=== PATIENT | female | born 1945 | race Caucasian/White ===

== ENCOUNTER 2016-05-21 22:24 | Emergency (ER) | payer MEDICARE, OTHER | END 2016-05-22 01:11 | disposition home or self-care (01) | DX: D68.59 Other primary thrombophilia (principal); M54.5 Low back pain; Z86.718 Personal history of other venous thrombosis and embolism; Z79.01 Long term (current) use of anticoagulants ==

== ENCOUNTER 2016-08-05 15:26 | Emergency (ER) | payer MEDICARE, OTHER ==
--- NOTE | 2016-08-05 15:37 | ED Physician Documentation ---
PD HPI HEAD INJURY - Stated complaint Stated Complaint: HOLE IN HEAD - History obtained from History obtained from: Patient, Friend - History of Present Illness Mechanism of head injury: Blow (a cement shingle fell from ladder above her, hitting top of head. Had small laceration that bled well. No LOC but felt dazed for few moments. Has headache top of head. She is on Coumadin for prior DVTs.) Where head injury occurred: Other (friend's house) Timing - onset: Today (just [employer]RE[employer]) Location of injury: Top Quality of pain: Pain, Aching Associated symptoms: Other (laceration with bleeding.). No: LOC, AMS, Nausea / vomiting, Neck pain Symptoms improve with: Ice Symptoms worsen with: Palpation Contributing factors: Anticoagulated. No: Intoxicated Similar symptoms before: Has not had sx before Recently seen: Not recently seen Review of Systems Constitutional: denies: Fever Nose: denies: Rhinorrhea / runny nose, Congestion Throat: denies: Sore throat Cardiac: denies: Chest pain / pressure Respiratory: denies: Cough Musculoskeletal: denies: Neck pain, Back pain Neurologic: reports: Headache, Head injury. denies: Focal weakness, Numbness, Confused, Altered mental status, LOC PD PAST MEDICAL HISTORY - Past Medical History Cardiovascular: Deep vein thrombosis Psych: Depression - Past Surgical History Past Surgical History: Yes /RN IV THERAPY: Tubal ligation - Present Medications Home Medications: Ambulatory Orders Medication Instructions Recorded Confirmed Hydroxyurea [Hydrea] 500 mg PO DAILY 08/24/12 08/05/16 Warfarin Sodium [Coumadin] 5 mg PO DAILY 08/24/12 08/05/16 Bupropion HCl [Wellbutrin] 150 mg PO DAILY 11/27/14 08/05/16 Bupropion HCl [Bupropion Xl] 300 mg PO DAILY 05/28/15 08/05/16 Sertraline HCl 200 mg PO DAILY 05/28/15 08/05/16 Hydroxyzine Pamoate 5 mg BID 08/05/16 08/05/16 Omeprazole 20 mg DAILY 08/05/16 08/05/16 traZODone [Desyrel] 0.5 tab QPM 08/05/16 08/05/16 - Allergies Allergies/Adverse Reactions: Allergies Allergy/AdvReac Type Severity Reaction Status Date / Time hydrocodone bitartrate * AdvReac Mild Itching Verified 05/22/16 00:42 [From Vicodin] oxycodone HCl * AdvReac Mild Itching Verified 05/22/16 00:42 [From Percocet] - Social History Does the pt smoke?: No Smoking Status: Never smoker Does the pt drink ETOH?: No Does the pt have substance abuse?: No - Immunizations Immunizations are current?: Yes PD ED PE NORMAL - Vitals Vital signs reviewed: Yes - General General: Alert and oriented X 3, No acute distress, Well developed/nourished - HEENT HEENT: Ears normal, Pharynx benign, Other (top of head with 1.5 cm laceration v- shaped, with minimal bleeding right now, no FB seen. 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, No motor deficit, No sensory deficit, Normal speech, Other Results - Vitals Vitals: Vital Signs - 24 hr 08/05/16 08/05/16 15:32 16:55 Temperature 37 C 36.4 C L Heart Rate 75 59 L Respiratory 18 18 Rate Blood Pressure 124/73 125/68 O2 Saturation 98 97 Oxygen O2 Source Room air - Labs Labs: Laboratory Tests 08/05/16 15:50 Whole Blood INR 1.6 H - Rads (name of study) head CT Radiology: Prelim report reviewed (no ICH), EMP read contemporaneously Procedures - Laceration (location) scalp Length in cm: 1.5 Wound type: Curved, Clean Anesthesia: Lidocaine 1% with epi Wound Preparation: Other (cleansed with tap water) Skin layer closure: Nylon, Interrupted, Size #-0 - enter number (4), Sutures - enter # (3) Other: Patient tolerated well, No complications, Neurovascular intact, Dressing applied, Tetanus UTD Complexity: Simple PD MEDICAL DECISION MAKING - ED course Complexity details: reviewed results, considered differential, d/w patient Departure - Departure Disposition: 01 Home, Self Care Clinical Impression: Anticoagulant long-term use Scalp contusion Qualifiers: Encounter type: initial encounter Qualified Code(s): S00.03XA - Contusion of scalp, initial encounter Scalp laceration Qualifiers: Encounter type: initial encounter Qualified Code(s): S01.01XA - Laceration without foreign body of scalp, initial encounter Condition: Stable Record reviewed to determine appropriate education?: Yes Instructions: ED Laceration Scalp Stitch Or Stap Follow-Up: Chapito Potter DO [Primary Care Provider] - Comments: Tylenol every 4 hours if needed for pains. It is okay to wash and shower. Clean off the wound twice a day with soap and water, or peroxide and water. Apply some antibiotic ointment to it to keep it moist. Also to watch for signs of infection such as purulence, redness or increasing pain. Return to your primary care or the ER at the specified time for suture removal. Suture removal 7-8 days. Your Coumadin level was slightly low today. Take an extra 1 tablet of your Coumadin today. Otherwise continue usual doses. Discharge Date/Time: 08/05/16 16:59
[2016-08-05] MEDS ORDERED: TETANUS/DIPHTHERIA/PERTUSSIS 0.5 ML SYRINGE IM ONE ×2 (16:05→16:07)
--- NOTE | 2016-08-05 16:44 | CT Preliminary Report ---
Exam: CT Head W/O IMPRESSION: 1. No calvarial fracture or intracranial bleed. 2. Mild cerebral atrophy. 3. 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 [facility] SITE ID: [id number]
--- NOTE | 2016-08-05 16:46 | CT Report ---
EXAM: CT HEAD EXAM DATE: 08/05/2016 04:32 PM. CLINICAL HISTORY: Struck atop head with heavy board; on coumadin. COMPARISON: Head CT 11/01/2012. TECHNIQUE: Multiaxial CT images were obtained from the foramen magnum to the vertex. IV contrast: Non e. Reformats: Coronal. In accordance with CT protocol optimization, one or more of the following dose reduction techniques w ere utilized for this exam: automated exposure control, adjustment of mA and/or KV based on patient s ize, or use of iterative reconstructive technique. FINDINGS: Parenchyma: Mild cerebral atrophy without intracranial bleed or mass effect. Stanley-white differentiati on is distinct. Extraaxial Spaces: Mild cerebral atrophy. Ventricles: Normal in size and position. Sinuses: Imaged paranasal sinuses, orbits, and mastoids show no significant abnormality. Bones: Occipital osteoma redemonstrated measuring 2.7 x 1.1 cm. Other: None. IMPRESSION: 1. No calvarial fracture or intracranial bleed. 2. Mild cerebral atrophy. 3. 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 [facility] Referring Provider Line: [phone] SITE ID: [id number]
[2016-08-05 16:56] VITALS: BP 125/68
== END 2016-08-05 16:59 | disposition home or self-care (01) ==
LOC: ED 15:26
DX: S01.01XA Laceration without foreign body of scalp, initial encounter (principal); W20.8XXA Other cause of strike by thrown, projected or falling object, initial encounter; Y92.009 Unspecified place in unspecified non-institutional (private) residence as the place of occurrence of the external cause; Z23 Encounter for immunization; Z86.718 Personal history of other venous thrombosis and embolism; Z79.01 Long term (current) use of anticoagulants
CPT/HCPCS: 12001; 70450; 85610; 90471; 99283

== ENCOUNTER 2016-10-09 10:37 | Outpatient (CLI) | payer MEDICARE, OTHER | END 2016-10-09 10:38 | disposition home or self-care (01) | LOC: LAB.N 10:37 | PROVIDERS: ATTEND Family Medicine | DX: I48.91 Unspecified atrial fibrillation (principal); Z79.01 Long term (current) use of anticoagulants | CPT/HCPCS: 85610 ==

== ENCOUNTER 2016-11-13 13:02 | Emergency (ER) | payer MEDICARE, OTHER ==
[2016-11-13 13:17] VITALS: BP 122/83
--- NOTE | 2016-11-13 14:01 | XRAY Preliminary Report ---
Exam: XR Hand 3 View LT IMPRESSION: 1. Nondisplaced fifth metacarpal head fracture. 2. Moderate osteoarthritis and other chronic findings. [facility] SITE ID: [id number]
--- NOTE | 2016-11-13 14:03 | XRAY Report ---
EXAM: RIGHT HAND RADIOGRAPHY EXAM DATE: 11/13/2016 01:43 PM. CLINICAL HISTORY: Fall, pain. COMPARISON: None. TECHNIQUE: 3 views. FINDINGS: Bones: Osteopenia. Impacted nondisplaced transverse fracture of fifth metacarpal head. Ununited ulnar styloid process with smooth margins. No other evidence of fracture or bone lesion. Old ORIF of dista l radius. Joints: Prominent degenerative changes distally and in the first CMC joint. Soft Tissues: Soft tissue swelling. IMPRESSION: 1. Nondisplaced fifth metacarpal head fracture. 2. Moderate osteoarthritis and other chronic findings. [facility] Referring Provider Line: [phone] SITE ID: [id number]
--- NOTE | 2016-11-13 14:05 | XRAY Preliminary Report ---
Exam: XR Chest 2 View PA/LAT IMPRESSION: Chronic findings. No definite acute disease. Left rib fractures appear to be old, but cor relation with symptom localization may be helpful. [facility] SITE ID: [id number]
--- NOTE | 2016-11-13 14:07 | XRAY Report ---
EXAM: CHEST RADIOGRAPHY EXAM DATE: 11/13/2016 01:43 PM. CLINICAL HISTORY: Fall, pain. COMPARISON: None. TECHNIQUE: 2 views. FINDINGS: Lungs/Pleura: Coarse interstitial markings. No definite localized infiltrate, consolidation, effusion , or pneumothorax. Mediastinum: Heart and mediastinal contours are unremarkable. Normal heart size. Upper lobe vessels n ot distended. Other: Osteopenia. Degenerative changes. Probable fractures of anterolateral left fifth, sixth, and s eventh ribs, age unknown, probably old. Prominent anterior compression fracture of about L1, also pro bably old. Slight deformity of lower sternum, most likely old trauma. IMPRESSION: Chronic findings. No definite acute disease. Left rib fractures appear to be old, but cor relation with symptom localization may be helpful. [facility] Referring Provider Line: [phone] SITE ID: [id number]
--- NOTE | 2016-11-13 14:57 | ED Physician Documentation ---
History of Present Illness - Stated complaint Stated Complaint: GLF/LT HAND INJ/ CHEST PX - Chief complaint Chief Complaint: General - History obtained from History obtained from: Patient - History of Present Illness Timing: Other (She had a trip and fall last night landing on her left hand and left chest wall against concrete. No other injuries. No head or neck injury. 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 - Present Medications Home Medications: Ambulatory Orders Medication Instructions Recorded Confirmed Hydroxyurea [Hydrea] 500 mg PO DAILY 08/24/12 11/13/16 Warfarin Sodium [Coumadin] 5 mg PO DAILY 08/24/12 11/13/16 Bupropion HCl [Bupropion Xl] 300 mg PO DAILY 05/28/15 11/13/16 Sertraline HCl 200 mg PO DAILY 05/28/15 11/13/16 Hydroxyzine Pamoate 5 mg BID 08/05/16 11/13/16 Omeprazole 20 mg DAILY 08/05/16 11/13/16 traMADol [Ultram] 50 mg PO Q4-6H PRN #15 tablet 11/13/16 - Allergies Allergies/Adverse Reactions: Allergies Allergy/AdvReac Type Severity Reaction Status Date / Time hydrocodone bitartrate * AdvReac Mild Itching Verified 11/13/16 14:30 [From Vicodin] oxycodone HCl * AdvReac Mild Itching Verified 11/13/16 14:30 [From Percocet] - Social History Does the pt smoke?: No Smoking Status: Never smoker Does the pt drink ETOH?: No Does the pt have substance abuse?: No - Immunizations Immunizations are current?: Yes Immunizations: TDAP >10years/unknown - POLST Patient has POLST: No PD ED PE NORMAL - Vitals Vital signs reviewed: Yes - General General: Alert and oriented X 3, No acute distress - Neck Neck: Supple, no meningeal sign, No bony TTP - Cardiac Cardiac: RRR, No murmur, Other (Mild tenderness left lateral chest wall without deformity. No abdominal or flank tenderness.) - Respiratory Respiratory: No respiratory distress, Clear bilaterally - Extremities Extremities: Other (Mild tenderness to the fifth Metacarpal head without deformity or loss of saccade, normal neurovascular status in the tips of the left fourth and fifth fingers.) - Neuro Neuro: Alert and oriented X 3, Normal speech - Psych Psych: Normal mood, Normal affect Results - Vitals Vitals: Vital Signs - 24 hr 11/13/16 13:15 Temperature 36.2 C L Heart Rate 64 Respiratory 16 Rate Blood Pressure 122/83 H O2 Saturation 97 Oxygen O2 Source Room air - Rads (name of study) 2 view chest x-ray and left hand x-ray Radiology: EMP read contemporaneously (What appear to be old left rib fractures , and there is a nondisplaced fifth metacarpal head fracture) Procedures - Splint (location) L hand Splint applied by: Tech Type of splint: Fiberglass, Short arm, Ulnar gutter Other: Patient tolerated well, No complications, Neurovascular intact PD MEDICAL DECISION MAKING - ED course ED course: She declines prescription pain medication She is on warfarin, however there was no head injury or core injury other than her left chest wall. The patient and family were counseled as to the diagnosis and need for follow- up. I counseled the patient with regard to signs and symptoms that would necessitate an urgent reevaluation in the emergency department. They understand they are welcome to return at any time if worse or if not improving as expected. This document was made in part using voice recognition software. While efforts are made to proofread this documents, sound alike and grammatical errors may occur. Departure - Departure Disposition: 01 Home, Self Care Clinical Impression: Fracture of fifth metacarpal bone of left hand Qualifiers: Encounter type: initial encounter Fracture type: closed Metacarpal location: neck Fracture alignment: displaced Qualified Code(s): S62.337A - Displaced fracture of neck of fifth metacarpal bone, left hand, initial encounter for closed fracture Rib fractures Qualifiers: Encounter type: initial encounter Rib fracture type: multiple ribs Fracture type: closed Laterality: left Qualified Code(s): S22.42XA - Multiple fractures of ribs, left side, initial encounter for closed fracture Condition: Good Record reviewed to determine appropriate education?: Yes Instructions: ED Contusion Vs Minor Fx Rib, ED Cast Care Fiberglass Follow-Up: [facility] [Provider Group] - Within 1 week Prescriptions: traMADol [Ultram] 50 mg PO Q4-6H PRN #15 tablet PRN Reason: Pain Comments: Call your doctor to arrange a follow-up appointment, make the next available appointment. In the interim, return anytime if worse or if new symptoms develop. Your blood pressure was elevated today on check into the emergency department. This does not mean that you have hypertension, it is a common phenomenon to come to the emergency department and have elevated blood pressure. I recommend that she see your primary care physician within the week to have it rechecked when you are feeling better. Discharge Date/Time: 11/13/16 15:17
== END 2016-11-13 15:17 | disposition home or self-care (01) ==
LOC: ED 13:02
DX: S62.337A Displaced fracture of neck of fifth metacarpal bone, left hand, initial encounter for closed fracture (principal); S22.42XA Multiple fractures of ribs, left side, initial encounter for closed fracture; W01.0XXA Fall on same level from slipping, tripping and stumbling without subsequent striking against object, initial encounter; R03.0 Elevated blood-pressure reading, without diagnosis of hypertension; F02.80 Dementia in other diseases classified elsewhere, unspecified severity, without behavioral disturbance, psychotic disturbance, mood disturbance, and anxiety; G30.9 Alzheimer's disease, unspecified; Z86.718 Personal history of other venous thrombosis and embolism; Z79.01 Long term (current) use of anticoagulants
CPT/HCPCS: 29125; 71020; 99283; 99284

== ENCOUNTER 2017-05-08 17:21 | Emergency (ER) | payer MEDICARE, OTHER ==
--- NOTE | 2017-05-08 17:45 | ED Physician Documentation ---
History of Present Illness - Stated complaint Stated Complaint: POSS STROKE SYMPTOMS - Chief complaint Chief Complaint: Neuro - History obtained from History obtained from: Patient, Friend - History of Present Illness Timing: Today, How many hours ago (1.5) Pain level max: 0 Pain level now: 0 Improved by: nothing Worsened by: nothing - Additonal information Additional information: Patient is a 72-year-old female who has a history of mild dementia, was outside today putting logs onto a fire, went back in the house and felt shaky and nauseated. She had emesis 1 and then felt better. She also had some confusion at that time, this seems to be improving now. No focal neurological deficits. No difficulty with speech. No aphasia. No dysarthria. No headache. No fevers. No trauma. Review of Systems Unable to obtain: Dementia Constitutional: denies: Fever, Chills Ears: denies: Ear pain Nose: denies: Rhinorrhea / runny nose, Congestion Throat: denies: Sore throat Cardiac: denies: Chest pain / pressure Respiratory: denies: Cough GI: denies: Nausea, Vomiting, Diarrhea Skin: denies: Rash Musculoskeletal: denies: Neck pain, Back pain, Extremity pain Neurologic: denies: Generalized weakness, Focal weakness, Numbness, Syncope, Seizure, Headache PD PAST MEDICAL HISTORY - Past Medical History Cardiovascular: Deep vein thrombosis Neuro: Alzhiemer's Psych: Depression - Past Surgical History Past Surgical History: Yes /YACHT HAND: Tubal ligation - Present Medications Home Medications: Ambulatory Orders Medication Instructions Recorded Confirmed Hydroxyurea [Hydrea] 500 mg PO DAILY 08/24/12 01/20/17 Bupropion HCl [Bupropion Xl] 300 mg PO DAILY MDD +150mg, total 05/28/15 01/20/17 dose 450 mg Sertraline HCl 200 mg PO DAILY 05/28/15 01/20/17 hydrOXYzine pamoate [Hydroxyzine 5 mg PO BID PRN 08/05/16 01/20/17 Pamoate] traMADol [Ultram] 50 mg PO Q4-6H PRN #15 tablet 11/13/16 01/20/17 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 01/20/17 flare Bupropion HCl [Bupropion Xl] 150 mg PO DAILY MDD +300 mg total 01/20/17 01/20/17 dose 450 mg Rivaroxaban [Xarelto] 1 each PO DAILY 01/20/17 01/20/17 Trazodone HCl 50 mg PO QPM PRN 01/20/17 01/20/17 - Allergies Allergies/Adverse Reactions: Allergies Allergy/AdvReac Type Severity Reaction Status Date / Time hydrocodone bitartrate * AdvReac Mild Itching Verified 01/20/17 14:49 [From Vicodin] oxycodone HCl * AdvReac Mild Itching Verified 01/20/17 14:49 [From Percocet] - Social History Does the pt smoke?: No Smoking Status: Never smoker Does the pt drink ETOH?: No Does the pt have substance abuse?: No - Immunizations Immunizations are current?: Yes Immunizations: TDAP >10years/unknown - POLST Patient has POLST: No PD ED PE NORMAL - Vitals Vital signs reviewed: Yes - General General: Alert and oriented X 3, No acute distress, Well developed/nourished - HEENT HEENT: Atraumatic, PERRL, EOMI, Ears normal, Moist mucous membranes - Neck Neck: Supple, no meningeal sign, No JVD, No bruit - Cardiac Cardiac: RRR, No murmur, Strong equal pulses - Respiratory Respiratory: No respiratory distress, Clear bilaterally - Abdomen Abdomen: Soft, Non tender, Non distended - Back Back: No spinal TTP - Derm Derm: Warm and dry, No rash - Extremities Extremities: No deformity - Neuro Neuro: Alert and oriented X 3, transportation program director 2-12 intact, No motor deficit, No sensory deficit, Normal speech, Other (normal cerebellar tests) - Psych Psych: Normal mood, Normal affect Results - Vitals Vitals: Vital Signs - 24 hr 05/08/17 05/08/17 05/08/17 17:26 19:20 20:55 Temperature 36.4 C L Heart Rate 66 59 L 69 Respiratory 16 14 12 Rate Blood Pressure 124/77 126/87 H 123/76 O2 Saturation 98 100 99 Oxygen O2 Source Room air - EKG (time done) 1909 Rate: Rate (enter#) (58) Rhythm: NSR [place]: Normal Intervals: Normal MI QRS: Normal Ischemia: Normal ST segments Computer interpretation: Agree with computer - Labs Labs: Laboratory Tests 05/08/17 05/08/1718 17:43 18:25 18:25 WBC 4.7 L RBC 3.51 L Hgb 12.3 Hct 36.6 L MCV 104.2 H MCH 35.2 H MCHC 33.7 RDW 13.8 Plt Count 285 MPV 6.5 L Neut # 3.5 Lymph # 0.8 L [place] # 0.3 Eos # 0.1 Baso # 0.0 Absolute Nucleated RBC 0.00 Nucleated RBC % 0.0 Sodium 129 L Potassium 3.8 Chloride 97 L Carbon Dioxide 24 Anion Gap 8.0 BUN 17 Creatinine 0.9 Estimated GFR (MDRD) 61 L Glucose 93 POC Whole Bld Glucose 107 H Calcium 8.5 Total Bilirubin 0.6 AST 19 ALT 15 Alkaline Phosphatase 52 Troponin I Total Protein 6.4 L Albumin 3.8 Globulin 2.6 Albumin/Globulin Ratio 1.5 Lipase 16 L Urine Color Urine Clarity Urine pH Ur Specific [place] Urine Protein Urine Glucose (UA) Urine Ketones Urine Occult Blood Urine Nitrite Urine Bilirubin Urine Urobilinogen Ur Leukocyte Esterase Ur Microscopic Review Urine Culture Comments Urine Opiates Screen Ur Oxycodone Screen Urine Methadone Screen Ur Propoxyphene Screen Ur Barbiturates Screen Ur Tricyclics Screen Ur Phencyclidine Scrn Ur Amphetamine Screen U Methamphetamines Scrn U Benzodiazepines Scrn Urine Cocaine Screen U Cannabinoids Screen Ethyl Alcohol < 5.0 05/08/17 05/08/17 18:25 20:05 WBC RBC Hgb Hct MCV MCH MCHC RDW Plt Count MPV Neut # Lymph # [place] # Eos # Baso # Absolute Nucleated RBC Nucleated RBC % Sodium Potassium Chloride Carbon Dioxide Anion Gap BUN Creatinine Estimated GFR (MDRD) Glucose POC Whole Bld Glucose Calcium Total Bilirubin AST ALT Alkaline Phosphatase Troponin I < 0.04 Total Protein Albumin Globulin Albumin/Globulin Ratio Lipase Urine Color YELLOW Urine Clarity CLEAR Urine pH 7.0 Ur Specific [place] <=1.005 Urine Protein NEGATIVE Urine Glucose (UA) NEGATIVE Urine Ketones NEGATIVE Urine Occult Blood NEGATIVE Urine Nitrite NEGATIVE Urine Bilirubin NEGATIVE Urine Urobilinogen 0.2 (NORMAL) Ur Leukocyte Esterase NEGATIVE Ur Microscopic Review NOT INDICATED Urine Culture Comments NOT INDICATED Urine Opiates Screen NEGATIVE Ur Oxycodone Screen NEGATIVE Urine Methadone Screen NEGATIVE Ur Propoxyphene Screen NEGATIVE Ur Barbiturates Screen NEGATIVE Ur Tricyclics Screen NEGATIVE Ur Phencyclidine Scrn NEGATIVE Ur Amphetamine Screen NEGATIVE U Methamphetamines Scrn NEGATIVE U Benzodiazepines Scrn NEGATIVE Urine Cocaine Screen NEGATIVE U Cannabinoids Screen NEGATIVE Ethyl Alcohol - Rads (name of study) Ct Angio head Radiology: Prelim report reviewed, EMP read contemporaneously, See rad report ( 1. There is no acute intracranial abnormality. 2. 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 3. There is a mild degree of chronic small vessel ischemia. 4. Normal postcontrast CT scan of the head. 5. There is an 8 mm isodense mass just beneath the skin surface of the left cheek and a similar appearing but larger lesion just beneath the skin surface of the inferior posterior neck. These likely represent sebaceous cysts but recommend clinical correlation. 6. There is fenestration within the mid to distal right V2 segment of the right vertebral artery. This is a common anatomical variant. 7. There is no hemodynamically significant stenosis within the neck. 8. There is no hemodynamically significant stenosis within the head. There is no evidence of cerebral aneurysm. ) CT angio neck Radiology: Prelim report reviewed, EMP read contemporaneously, See rad report ( 1. There is no acute intracranial abnormality. 2. 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 3. There is a mild degree of chronic small vessel ischemia. 4. Normal postcontrast CT scan of the head. 5. There is an 8 mm isodense mass just beneath the skin surface of the left cheek and a similar appearing but larger lesion just beneath the skin surface of the inferior posterior neck. These likely represent sebaceous cysts but recommend clinical correlation. 6. There is fenestration within the mid to distal right V2 segment of the right vertebral artery. This is a common anatomical variant. 7. There is no hemodynamically significant stenosis within the neck. 8. There is no hemodynamically significant stenosis within the head. There is no evidence of cerebral aneurysm. ) PD MEDICAL DECISION MAKING - ED course Complexity details: reviewed results, re-evaluated patient, considered differential, d/w patient, d/w family ED course: Patient is a 72-year-old female presents to the emergency department feeling tremulous today after stacking wood onto a fire. Does not have any focal neurological deficits. No evidence of stroke or TIA. She is hyponatremic and slightly dehydrated, feels better after IV fluids. Symptoms resolved in the emergency department and she is at her normal baseline. No acute findings on CT angio of the head or neck. She does have some chronic findings are can be followed up with her doctor. Also has small vessel chronic ischemic disease. Patient and family counseled regarding signs and symptoms for which I believe and urgent re-evaluation would be necessary. Patient with good understanding of and agreement to plan and is comfortable going home at this time This document was made in part using voice recognition software. While efforts are made to proofread this document, sound alike and grammatical errors may occur. Departure - Departure Disposition: 01 Home, Self Care Clinical Impression: Hyponatremia Altered mental status Qualifiers: Altered mental status type: transient alteration of awareness Qualified Code(s) : R40.4 - Transient alteration of awareness Condition: Good Instructions: ED Altered Loc Follow-Up: Chapito Potter DO [Primary Care Provider] - Within 3 Days Comments: The cause of your symptoms is unclear today. You should follow up with Dr Potter early this week for a brain MRI. Return if you worsen. You should start on a baby aspirin daily. Discharge Date/Time: 05/08/17 21:32 NIHSS - Time Time: 17:40 - Level of Consciousness Level of consciousness: (0) Alert, Keenly responsive LOC Questions: (0) Answers both Q's correct LOC Commands: (0) Performs both correctly - Gaze Best Gaze: (0) Normal - Visual Visual: (0) No loss - Facial Palsy Facial Palsy: (0) Normal, symmetrical movement - Motor Arms (both separate) Motor Arm (right): (0) No drift Motor Arm (left): (0) No drift - Motor Legs (both separate) Motor Leg (right): (0) No drift Motor Leg (left): (0) No drift - Limb Ataxia Limb Ataxia: (0) Absent - Sensory Sensory: (0) Normal - Best Language Best Language: (0) No aphasia - Dysarthria Dysarthria: (0) Normal - Extinction and Inattention (formally neg Extinction and inattention: (0) No abnormality - Total Score/Results Total Score/Result: 0
[2017-05-08] MEDS ORDERED: IOPAMIDOL-300 100 ML VIAL ONE (18:00)
[2017-05-08 18:32] LABS: BASOPHILS % (AUTO) 0.2 %; EOSINOPHILS # (AUTO) 0.1 10^3/uL (0.0-0.7); EOSINOPHILS % (AUTO) 1.3 %; HGB - HEMOGLOBIN 12.3 g/dL (12.0-16.0); LYMPHOCYTES # (AUTO) 0.8 10^3/uL (1.5-3.5); LYMPHOCYTES % (AUTO) 16.2 %; MEAN CORPUSCULAR HEMOGLOBIN 35.2 pg (27.0-31.0); MEAN CORPUSCULAR HGB CONC 33.7 g/dL (32.0-36.0); MEAN CORPUSCULAR VOLUME 104.2 fL (81.0-99.0); MEAN PLATELET VOLUME 6.5 fL (7.9-10.8); MONOCYTES # (AUTO) 0.3 10^3/uL (0.0-1.0); MONOCYTES % (AUTO) 6.9 %; NEUTROPHILS # (AUTO) 3.5 10^3/uL (1.5-6.6); NEUTROPHILS % (AUTO) 75.4 %; PLT - PLATELET COUNT 285 10^3/uL (130-450); RED BLOOD COUNT 3.51 10^6/uL (4.20-5.40); RED CELL DISTRIBUTION WIDTH 13.8 % (12.0-15.0); WHITE BLOOD COUNT 4.7 x10^3/uL (4.8-10.8)
[2017-05-08 18:44] LABS: ALBUMIN 3.8 g/dL (3.2-5.5); ALBUMIN/GLOBULIN RATIO 1.5 (1.0-2.2); ALKALINE PHOSPHATASE 52 IU/L (42-121); ALT ALANINE AMINOTRANSFERASE 15 IU/L (10-60); AST ASPARTATE AMINOTRANSFERASE 19 IU/L (10-42); BILIRUBIN,TOTAL 0.6 mg/dL (0.2-1.0); BUN - BLOOD UREA NITROGEN 17 mg/dL (6-20); CALCIUM 8.5 mg/dL (8.5-10.3); CARBON DIOXIDE - CO2 24 mmol/L (21-32); CHLORIDE 97 mmol/L (101-111); CREATININE 0.9 mg/dL (0.4-1.0); GFR - MDRD 61 (>89); GLUCOSE 93 mg/dL (70-100); LIPASE 16 U/L (22-51); SODIUM 129 mmol/L (135-145); TOTAL PROTEIN 6.4 g/dL (6.7-8.2)
[2017-05-08] MEDS ORDERED: SODIUM CHLORIDE 0.9% 1,000 ML IV ONE (19:14)
[2017-05-08] MEDS ORDERED: SODIUM CHLORIDE 0.9% 500 ML IV ONE (19:14)
--- NOTE | 2017-05-08 19:20 | CT Preliminary Report ---
Exam: CT HEAD ANGIO Impression: 1. There is no acute intracranial abnormality. 2. 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 3. There is a mild degree of chronic small vessel ischemia. 4. Normal postcontrast CT scan of the head. 5. There is an 8 mm isodense mass just beneath the skin surface of the left cheek and a similar appea ring but larger lesion just beneath the skin surface of the inferior posterior neck. These likely rep resent sebaceous cysts but recommend clinical correlation. 6. There is fenestration within the mid to distal right V2 segment of the right vertebral artery. Thi s is a common anatomical variant. 7. There is no hemodynamically significant stenosis within the neck. 8. There is no hemodynamically significant stenosis within the head. There is no evidence of cerebral aneurysm. SITE ID: [id number]
[2017-05-08 20:11] LABS: BILIRUBIN,URINE NEGATIVE (NEGATIVE); GLUCOSE, URINE (UA) NEGATIVE (NEGATIVE); KETONES,URINE (UA) NEGATIVE (NEGATIVE); LEUKOCYTE ESTERASE, URINE NEGATIVE (NEGATIVE); MUDS CUTOFF CONCENTRATIONS CUTOFF CONC BELOW:; NITRITE,URINE NEGATIVE (NEGATIVE); OCCULT BLOOD,URINE NEGATIVE (NEGATIVE); PROTEIN,URINE NEGATIVE (NEGATIVE); UROBILINOGEN,URINE 0.2 (NORMAL) E.U./dL (NORMAL)
[2017-05-08 20:12] LABS: CLARITY,URINE CLEAR (CLEAR)
--- NOTE | 2017-05-08 20:28 | CT Report ---
EXAM: CT ANGIOGRAM HEAD AND NECK. CT SCAN HEAD WITHOUT AND WITH CONTRAST. EXAM DATE:05/08/2017 06:25 PM. CLINICAL HISTORY:Left-sided facial droop. COMPARISON:CT scan of the head without contrast 08/05/2016 and MRI of the brain without contrast 11/23. TECHNIQUE: Routine axial helical CTA imaging was performed from the aortic arch through the [place] of [place]. Routine axial CT imaging of the head was performed prior to and following contrast administr ation. Reconstructions: Routine multiplanar 3D MIP reconstructions. IV contrast: 80 mL Isovue 300. NASCET Criteria are used for stenosis measurements. In accordance with CT protocol optimization, one or more of the following dose reduction techniques w ere utilized for this exam: automated exposure control, adjustment of mA and/or KV based on patient s ize, or use of iterative reconstructive technique. FINDINGS: CT scan of the head without contrast: The images are degraded by motion. The imaged portions of the paranasal sinuses are normally aerated. The bilateral mastoid air cells ar e normally aerated. 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 It is unchanged. There is no acute fracture of the calvaria. There is no acute collection of blood or blood products, or mass. There is no midline shift. The millard -white differentiation remains distinct. There is a mild degree of periventricular white matter hypod ensity consistent with a mild degree of chronic small vessel ischemia. Cerebral volume and ventricula r size are normal. CT scan of the head with contrast: There is normal enhancement within the deep venous sinuses. There is normal enhancement within the br ain parenchyma. CT angiogram of the neck: There is mild straightening of the normal cervical lordosis. There is a moderate decrease in the heig ht of the disk throughout the mid and lower cervical spine with endplate spondylosis. There are multi level moderate degenerative changes of the cervical spine. There is beam-hardening artifact from the patient's dental amalgam and or dental hardware obscuring p ortions of the oropharynx, nasopharynx, oral cavity, airport control operator and parotid spaces, tongue and tongue base. The bilateral mastoid air cells are normally aerated. There is mild mucosal thickening in the left ma xillary sinus. The imaged portions of the orbits are normal in appearance. There is an 8 mm isodense mass just beneath the skin surface of the left cheek (356, 2). This may rep resent a small sebaceous cyst but recommend direct visualization and correlation. The airport control operator spaces exhibit symmetric densities. The opening of the eustachian tubes are normally aerated. The torus tubarius are symmetric. The fossa of [place] is collapsed bilaterally. The palatine tonsils exhibit symmetric hypertrophy. The re tropharyngeal space exhibits normal fat densities. There is an isodense to muscle mass demonstrated just need to skin surface of the inferior neck just to the right of midline measuring greater than 13 x 21 mm (239, 2). The appearance would overall favo r a sebaceous cyst. Recommend correlation. There is respiratory motion superimposed on the images of the lung apices. There is subsegmental atel ectasis demonstrated within the bilateral lung apices. There are small cystic changes of the bilateral lung apices consistent with changes of centrilobular and distal acinar emphysema. There is a nonspecific 2 mm subpleural pulmonary nodule of the right upper lobe (129, 2). There is a normal configuration of the aortic arch. The extrinsic and the intrinsic muscles of the tongue exhibit symmetric densities. There is no signif icant adenopathy in the level IA nola chain. There is no significant adenopathy within the bilatera l level IB nola chains. The bilateral submandibular glands exhibit symmetric size and enhancement. T he vallecula are symmetric. The free and fixed margins of the epiglottis are normal in appearance. Th e preepiglottic space and paraglottic spaces exhibit normal fat densities. The aryepiglottic folds an d pyriform sinuses are symmetric. The arytenoid cartilage, cricoid cartilage, and the thyroid cartila ges are normal in appearance. The false and true cords are normal in appearance. The subglottic space is normal. The bilateral thyroid lobes enhance symmetrically. The right common carotid artery, carotid bulb, and extracranial right internal carotid artery are smo oth and nonstenotic. The left common carotid artery, carotid bulb, and extracranial left internal car otid artery are smooth and nonstenotic. There is fenestration within the mid to distal right V2 segment of the right vertebral artery. This i s a common anatomical variant. The right vertebral artery V1, V2, V3 segments are smooth and nonstenotic. The left vertebral artery V1, V2, and V3 segments are smooth and nonstenotic. CT angiogram of the head: The right vertebral artery intradural segment is smooth and nonstenotic. The left vertebral artery in tradural segment is smooth and nonstenotic. The left posterior-inferior cerebellar artery is without flow-limiting stenosis. There is a right AICA/PICA anatomical variant. The left anterior inferior cerebellar artery is smooth and nonstenotic. The basilar artery is without flow-limiting stenosis. There is a mild stenosis of the mid right superior cerebellar artery suggested measuring between 25-5 0%. The left superior cerebellar artery is without flow-limiting stenosis. The right posterior commun icating artery is without flow-limiting stenosis. The right P1 and P2 segments of the right posterio r cerebral artery are without flow-limiting stenosis. There is a suggestion of a hypoplastic left posterior communicating artery. The left P1 and P2 segments of the left posterior cerebral artery are without flow-limiting stenosis. The right intracranial internal carotid artery is smooth and nonstenotic. The left intracranial inter nal carotid artery is smooth and nonstenotic. The right A1 segment is smooth and nonstenotic. The left A1 segment is smooth and nonstenotic. There is a small anterior communicating artery. The right A2 segment of the right anterior cerebral artery is smooth and nonstenotic. The left A2 segment of the left anterior cerebral artery is smooth and non stenotic. There is normal enhancement within the deep venous sinuses. IMPRESSION: 1. There is no acute intracranial abnormality. 2. 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 3. There is a mild degree of chronic small vessel ischemia. 4. Normal postcontrast CT scan of the head. 5. There is an 8 mm isodense mass just beneath the skin surface of the left cheek and a similar appea ring but larger lesion just beneath the skin surface of the inferior posterior neck. These likely rep resent sebaceous cysts but recommend clinical correlation. 6. There is fenestration within the mid to distal right V2 segment of the right vertebral artery. Thi s is a common anatomical variant. 7. There is no hemodynamically significant stenosis within the neck. 8. There is no hemodynamically significant stenosis within the head. There is no evidence of cerebral aneurysm. Referring Provider Line: [phone] SITE ID: [id number]
[2017-05-08 20:29] LABS: AMPHETAMINE SCREEN,URINE NEGATIVE (NEGATIVE); BENZODIAZEPINES SCREEN, URINE NEGATIVE (NEGATIVE); COCAINE SCREEN URINE NEGATIVE (NEGATIVE); METHADONE SCREEN, URINE NEGATIVE (NEGATIVE); METHAMPHETAMINES SCREEN, URINE NEGATIVE (NEGATIVE); OPIATE SCREEN, URINE NEGATIVE (NEGATIVE); OXYCODONE SCREEN, URINE NEGATIVE (NEGATIVE); PROPOXYPHENE SCREEN, URINE NEGATIVE (NEGATIVE); TRICYCLIC ANTIDEPRESSANT,URINE NEGATIVE (NEGATIVE)
[2017-05-08 21:34] VITALS: BP 123/76
== END 2017-05-08 21:32 | disposition home or self-care (01) ==
LOC: ED 17:21
DX: E87.1 Hypo-osmolality and hyponatremia (principal); E86.0 Dehydration; R40.4 Transient alteration of awareness; G30.9 Alzheimer's disease, unspecified; F02.80 Dementia in other diseases classified elsewhere, unspecified severity, without behavioral disturbance, psychotic disturbance, mood disturbance, and anxiety; Z86.718 Personal history of other venous thrombosis and embolism; Z79.01 Long term (current) use of anticoagulants
CPT/HCPCS: 36415; 70496; 70498; 80053; 80306; 81003; 83690; 84484; 85025; 93005; 96360; 96361; 99284; G0480; Q9967; 80320; 81001; 87086

== ENCOUNTER 2017-05-19 13:44 | Outpatient (CLI) | payer MEDICARE, OTHER ==
--- NOTE | 2017-05-20 14:12 | MRI Report ---
EXAM: MRI BRAIN WITHOUT CONTRAST EXAM DATE: 05/19/2017 03:00 PM. CLINICAL HISTORY: Episodes of altered mental status. Dementia. Memory loss. COMPARISON: CT scan and CT angiogram of the head 05/08/2017. MRI of the brain 12/11/2013. TECHNIQUE: Multiplanar, multisequence T1-weighted and fluid-sensitive MR sequences of the brain were performed. Sequences optimized for routine evaluation. Other: None. IV Contrast: None. FINDINGS: Brain Volume: Normal for age. Parenchyma/Dura: No mass, acute infarct or hemorrhage. Minimal confluent periventricular and scattere d punctate deep and subcortical white matter T2 and FLAIR bright signal is seen in the cerebral hemis pheres. This is not an unexpected finding in a patient of age 72 years. No cortical signal abnormalit y. Ventricles/Cisterns: No hydrocephalus. No abnormal extra-axial fluid collection or hemorrhage. Orbits: Symmetric and unremarkable. Note is made of bilateral lens removal. Sella [place]: The pituitary gland, cavernous sinuses, suprasellar cistern and optic chiasm are unrem arkable. IAC: Symmetric and unremarkable. Vasculature: Normal signal flow void is seen in the major arterial structures at the skull base. Sinuses: No acute appearing sinus disease. Bones: No focal pathologic appearing marrow signal changes. Note is made of a 19 x 10 x 24 mm osseous projection extending posteriorly from the midline occipital bone. This may represent an osteochondro ma or osteoma. Other: None. IMPRESSION: 1. Negative noncontrast MRI of the brain. No acute abnormality. No significant change. 2. Minimal white matter T2/FLAIR bright signal noted in the cerebral hemispheres. This is nonspecific , but typically secondary to small vessel ischemic change. [facility] Referring Provider Line: [phone] SITE ID: [id number]
== END 2017-05-19 13:45 | disposition home or self-care (01) ==
LOC: DI 13:44
PROVIDERS: ATTEND Family Medicine
DX: R41.82 Altered mental status, unspecified (principal)
CPT/HCPCS: 70551

== ENCOUNTER 2017-11-13 23:24 | Outpatient (CLI) | payer MEDICARE, OTHER | END 2017-11-13 23:25 | disposition critical access hospital (66) | LOC: EMS 23:24 | PROVIDERS: ATTEND Surgery | DX: R11.2 Nausea with vomiting, unspecified (principal) | CPT/HCPCS: A0425; A0427 ==

== ENCOUNTER 2017-11-13 23:44 | Emergency (ER) | payer MEDICARE, OTHER ==
[2017-11-13] MEDS ORDERED: SODIUM CHLORIDE 0.9% 1,000 ML IV ONE (23:47)
[2017-11-13] MEDS ORDERED: ONDANSETRON 4 MG/2 ML VIAL IVP STA (23:47)
[2017-11-13] MEDS ORDERED: FAMOTIDINE 20 MG in SODIUM CHLORIDE 0.9% 50 ML IV ONE (23:52)
[2017-11-14 00:01] LABS: BASOPHILS % (AUTO) 0.3 %; EOSINOPHILS # (AUTO) 0.2 10^3/uL (0.0-0.7); EOSINOPHILS % (AUTO) 2.9 %; HGB - HEMOGLOBIN 12.4 g/dL (12.0-16.0); LYMPHOCYTES # (AUTO) 0.8 10^3/uL (1.5-3.5); LYMPHOCYTES % (AUTO) 8.9 %; MEAN CORPUSCULAR HEMOGLOBIN 29.6 pg (27.0-31.0); MEAN CORPUSCULAR HGB CONC 33.8 g/dL (32.0-36.0); MEAN CORPUSCULAR VOLUME 87.7 fL (81.0-99.0); MONOCYTES # (AUTO) 0.5 10^3/uL (0.0-1.0); MONOCYTES % (AUTO) 6.3 %; NEUTROPHILS # (AUTO) 7.1 10^3/uL (1.5-6.6); NEUTROPHILS % (AUTO) 81.6 %; PLT - PLATELET COUNT 477 10^3/uL (130-450); RED BLOOD COUNT 4.19 10^6/uL (4.20-5.40); RED CELL DISTRIBUTION WIDTH 15.1 % (12.0-15.0); WHITE BLOOD COUNT 8.7 x10^3/uL (4.8-10.8)
[2017-11-14 00:14] LABS: ALBUMIN 3.7 g/dL (3.2-5.5); ALBUMIN/GLOBULIN RATIO 1.2 (1.0-2.2); BILIRUBIN,TOTAL 0.5 mg/dL (0.2-1.0); CALCIUM 8.8 mg/dL (8.5-10.3); TOTAL PROTEIN 6.7 g/dL (6.7-8.2)
[2017-11-14 00:51] LABS: BILIRUBIN,URINE NEGATIVE (NEGATIVE); GLUCOSE, URINE (UA) NEGATIVE (NEGATIVE); KETONES,URINE (UA) TRACE mg/dL (NEGATIVE); LEUKOCYTE ESTERASE, URINE TRACE (NEGATIVE); NITRITE,URINE NEGATIVE (NEGATIVE); OCCULT BLOOD,URINE NEGATIVE (NEGATIVE); PROTEIN,URINE NEGATIVE (NEGATIVE); UROBILINOGEN,URINE 0.2 (NORMAL) E.U./dL (NORMAL)
[2017-11-14 00:53] LABS: CLARITY,URINE CLEAR (CLEAR)
[2017-11-14 00:58] LABS: BACTERIA,URINE Few /HPF (None Seen); CASTS, URINE 3-5 Hyaline Casts /LPF; MUCUS,URINE Marked Strands; RBC,URINE 0-5 /HPF (0-5); SQUAMOUS EPITHELIAL CELL,UR MOD Squamous (<= Few)
[2017-11-14] MEDS ORDERED: PROMETHAZINE INJ 25 MG in SODIUM CHLORIDE 0.9% 50 ML IV STA (01:05)
--- NOTE | 2017-11-14 01:52 | ED Physician Documentation ---
History of Present Illness - Stated complaint Stated Complaint: N/V - Chief complaint Chief Complaint: Abd Pain - Additonal information Additional information: 72-year-old female presents the emergency department with complaints of nausea and vomiting which started shortly before arrival. The patient reports significant dry heaving and multiple episodes of vomiting. No reports of blood in the vomit. The patient denies any focal area of abdominal pain or active abdominal pain. No reports of diarrhea, chest pain, shortness of breath. Symptoms are described as moderate. No other associated symptoms. No triggering factors. No attempts at symptom management Review of Systems Constitutional: denies: Fever Eyes: denies: Discharge Ears: denies: Ear pain Throat: denies: Sore throat Cardiac: denies: Chest pain / pressure Respiratory: denies: Cough GI: reports: Nausea, Vomiting. denies: Abdominal Pain, Diarrhea : denies: Dysuria Skin: denies: Rash Musculoskeletal: denies: Neck pain Neurologic: denies: Generalized weakness PD PAST MEDICAL HISTORY - Past Medical History Cardiovascular: Deep vein thrombosis Respiratory: None Neuro: Dementia Endocrine/Autoimmune: None GI: None COMMERCIAL PHOTOGRAPHER: None : None HEENT: None Psych: Depression Musculoskeletal: None Derm: None - Past Surgical History Past Surgical History: Yes /COMMERCIAL PHOTOGRAPHER: Tubal ligation - Present Medications Home Medications: Ambulatory Orders Medication Instructions Recorded Confirmed Hydroxyurea [Hydrea] 500 mg PO DAILY 08/24/12 11/09/17 Bupropion HCl [Bupropion Xl] 300 mg PO DAILY MDD +150mg, total 05/28/15 11/09/17 dose 450 mg Sertraline HCl 200 mg PO DAILY 05/28/15 11/09/17 hydrOXYzine pamoate [Hydroxyzine 5 mg PO BID PRN 08/05/16 11/09/17 Pamoate] traMADol [Ultram] 50 mg PO Q4-6H PRN #15 tablet 11/13/16 11/09/17 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 11/09/17 flare Bupropion HCl [Bupropion Xl] 150 mg PO DAILY MDD +300 mg total 01/20/17 11/09/17 dose 450 mg Rivaroxaban [Xarelto] 1 each PO DAILY 01/20/17 11/09/17 Trazodone HCl 50 mg PO QPM PRN 01/20/17 11/09/17 Ondansetron Odt [Zofran] 4 mg TL Q6H PRN #30 tablet 11/14/17 - Allergies Allergies/Adverse Reactions: Allergies Allergy/AdvReac Type Severity Reaction Status Date / Time hydrocodone bitartrate * AdvReac Mild Itching Verified 11/13/17 23:51 [From Vicodin] oxycodone HCl * AdvReac Mild Itching Verified 11/13/17 23:51 [From Percocet] - Social History Does the pt smoke?: No Smoking Status: Never smoker Does the pt drink ETOH?: No Does the pt have substance abuse?: No - Immunizations Immunizations are current?: Yes Immunizations: TDAP >10years/unknown - POLST Patient has POLST: No PD ED PE NORMAL - General General: Alert and oriented X 3, No acute distress - HEENT HEENT: Atraumatic, PERRL, EOMI, Ears normal - Cardiac Cardiac: RRR, Strong equal pulses - Respiratory Respiratory: No respiratory distress - Abdomen Abdomen: Soft, Non tender, Non distended - Back Back: No CVA TTP - Derm Derm: Normal color - Extremities Extremities: No deformity, No edema - Neuro Neuro: Alert and oriented X 3, Normal speech - Psych Psych: Normal affect Results - Vitals Vitals: Vital Signs - 24 hr 11/13/17 23:46 Temperature 36.6 C Heart Rate 51 L Respiratory 14 Rate Blood Pressure 131/86 H O2 Saturation 96 Oxygen O2 Source Room air - Labs Labs: Laboratory Tests 11/13/17 11/13/17 11/14/17 23:55 23:55 00:43 WBC 8.7 RBC 4.19 L Hgb 12.4 Hct 36.8 L MCV 87.7 MCH 29.6 MCHC 33.8 RDW 15.1 H Plt Count 477 H MPV 7.0 L Neut # (Auto) 7.1 H Lymph # (Auto) 0.8 L [place] # (Auto) 0.5 Eos # (Auto) 0.2 Baso # (Auto) 0.0 Absolute Nucleated RBC 0.00 Nucleated RBC % 0.0 Sodium 139 Potassium 3.6 Chloride 105 Carbon Dioxide 26 Anion Gap 8.0 BUN 11 Creatinine 1.0 Estimated GFR (MDRD) 54 L Glucose 135 H Calcium 8.8 Total Bilirubin 0.5 AST 19 ALT 13 Alkaline Phosphatase 65 Total Protein 6.7 Albumin 3.7 Globulin 3.0 Albumin/Globulin Ratio 1.2 Lipase 40 Urine Color YELLOW Urine Clarity CLEAR Urine pH 6.0 Ur Specific [place] >=1.030 H Urine Protein NEGATIVE Urine Glucose (UA) NEGATIVE Urine Ketones TRACE Urine Occult Blood NEGATIVE Urine Nitrite NEGATIVE Urine Bilirubin NEGATIVE Urine Urobilinogen 0.2 (NORMAL) Ur Leukocyte Esterase TRACE H Urine RBC 0-5 Urine WBC 0-3 Ur Squamous Epith Cells MOD Squamous H Urine Bacteria Few Urine Casts 3-5 Hyaline Casts Urine Mucus Marked Strands Ur Microscopic Review INDICATED Urine Culture Comments NOT INDICATED PD MEDICAL DECISION MAKING - ED course ED course: On reevaluation the patient is resting comfortably and her nausea and vomiting are now under control. The patient has no tenderness to palpation on reexamination and the patient is denying any focal area of abdominal pain. Presently, the patient appears appropriate for discharge home. I discussed with her warning signs for various intra-abdominal processes and recommended that she return to the emergency department immediately for any abdominal pain, intractable vomiting, ability to hydrate or any concerns. The patient understands and agrees. - Sepsis Event Vital Signs: Vital Signs - 24 hr 11/13/17 23:46 Temperature 36.6 C Heart Rate 51 L Respiratory 14 Rate Blood Pressure 131/86 H O2 Saturation 96 Oxygen O2 Source Room air Departure - Departure Disposition: 01 Home, Self Care Clinical Impression: Vomiting Qualifiers: Vomiting type: unspecified Vomiting Intractability: non-intractable Nausea presence: with nausea Qualified Code(s): R11.2 - Nausea with vomiting, unspecified Condition: Good Instructions: ED Nausea Vomiting Ch Prescriptions: Ondansetron Odt [Zofran] 4 mg TL Q6H PRN #30 tablet PRN Reason: Nausea / Vomiting Comments: Please follow-up with primary care for reevaluation. Please return back to the emergency department immediately for worsening symptoms or any concerns
[2017-11-14 02:13] VITALS: BP 121/64
== END 2017-11-14 02:13 | disposition home or self-care (01) ==
LOC: EDUNIT# → ED 23:44
DX: R11.2 Nausea with vomiting, unspecified (principal)
CPT/HCPCS: 36415; 80053; 81001; 83690; 85025; 96365; 96368; 96375; 99283; J7040; 81003; 87086

== ENCOUNTER 2018-09-01 08:00 | Outpatient (CLI) | payer MEDICARE, OTHER ==
[2018-09-01 18:57] LABS: ALBUMIN/GLOBULIN RATIO 1.4 (1.0-2.2); BILIRUBIN,TOTAL 0.6 mg/dL (0.2-1.0); CALCIUM 9.2 mg/dL (8.5-10.3); CREATININE 0.8 mg/dL (0.4-1.0); TOTAL PROTEIN 6.9 g/dL (6.7-8.2)
== END 2018-09-01 23:59 | disposition home or self-care (01) ==
LOC: LAB.WCP 08:00
PROVIDERS: ATTEND Family Medicine
DX: I10 Essential (primary) hypertension (principal)
CPT/HCPCS: 36415; 80053

== ENCOUNTER 2018-09-20 11:18 | Inpatient (IN) | payer MEDICARE, OTHER ==
--- NOTE | 2018-09-20 11:27 | ED Physician Documentation ---
PD HPI ALTERED MENTAL STATUS - Stated complaint Stated Complaint: SHAKING - History obtained from History obtained from: Patient, Family - History of Present Illness Timing - onset: Yesterday (The patient has reportedly had some increased conf usion and memory problems over the last several weeks increasingly. It seems to be bit more over the last several days. She has had an element of general weakness as well for the last week or so. However most notable abrupt change was the onset of significant tremoring and inability to stand because of it starting some last night and into today. She fell and did hit the back of her head today because of that. She has been unable to walk because of the tremor and incoordination.) Timing - details: Abrupt onset, Still present Quality / character: Confused, Memory Loss. No: Less responsive Associated symptoms: No: Fever, Headache, Stiff neck Basline status: Alert and oriented X 3, Ambulatory Similar symptoms before: Has not had sx before (Family member says she does have a little bit of baseline tremor when she gets ill but no tremoring to this degree. There is been some progressive memory problems over a few months but is been most notable in the last week or so.) Recently seen: Not recently seen, Other (She denies any recent change in medications or new prescriptions. She has had mild weight loss recently on weight watchers.) Review of Systems Constitutional: denies: Fever, Chills, Myalgias Nose: denies: Rhinorrhea / runny nose, Congestion Throat: denies: Sore throat Respiratory: denies: Cough GI: reports: Other (thirsty often and drinks bottle of Crystal Light daily.). denies: Nausea, Vomiting, Diarrhea : denies: Dysuria, Frequency Skin: denies: Rash Neurologic: reports: Generalized weakness, Confused, Head injury (struck head today when fell). denies: Focal weakness, Numbness, Headache PD PAST MEDICAL HISTORY - Past Medical History Cardiovascular: Deep vein thrombosis Respiratory: None Neuro: Dementia Endocrine/Autoimmune: None GI: None REFLEXOLOGIST: None : None HEENT: None Psych: Depression Musculoskeletal: None Derm: None - Past Surgical History Past Surgical History: Yes /REFLEXOLOGIST: Tubal ligation - Present Medications Home Medications: Ambulatory Orders Medication Instructions Recorded Confirmed Bupropion HCl [Bupropion Xl] 300 mg PO DAILY MDD +150mg, total 05/28/15 09/20/18 dose 450 mg Sertraline HCl 200 mg PO DAILY 05/28/15 09/20/18 hydrOXYzine pamoate [Hydroxyzine 10 mg PO BID PRN 08/05/16 09/20/18 Pamoate] 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 01/20/17 09/20/18 Bupropion HCl [Bupropion Xl] 150 mg PO DAILY MDD +300 mg total 01/20/17 09/20/18 dose 450 mg lamoTRIgine [Lamictal] 100 mg PO DAILY 09/07/18 09/20/18 Donepezil [Aricept] 10 mg PO DAILY 09/20/18 09/20/18 Memantine [Namenda] 10 mg PO DAILY 09/20/18 09/20/18 - Allergies Allergies/Adverse Reactions: Allergies Allergy/AdvReac Type Severity Reaction Status Date / Time hydrocodone bitartrate * AdvReac Mild Itching Verified 09/20/18 11:27 [From Vicodin] oxycodone HCl * AdvReac Mild Itching Verified 09/20/18 11:27 [From Percocet] - Social History Does the pt smoke?: No Smoking Status: Never smoker Does the pt drink ETOH?: No Does the pt have substance abuse?: No - Immunizations Immunizations are current?: Yes Immunizations: TDAP >10years/unknown - POLST Patient has POLST: No PD ED PE NORMAL - Vitals Vital signs reviewed: Yes - General General: Alert and oriented X 3, Well developed/nourished - HEENT HEENT: Atraumatic, PERRL, Pharynx benign - Neck Neck: Supple, no meningeal sign, No adenopathy - Cardiac Cardiac: RRR, No murmur - Respiratory Respiratory: Clear bilaterally - Abdomen Abdomen: Soft, Non tender - Female Female : Deferred - Rectal Rectal: Deferred - Back Back: No CVA TTP - Derm Derm: Normal color, Warm and dry - Extremities Extremities: Normal ROM s pain, No edema, No calf tenderness / cord - Neuro Neuro: Alert and oriented X 3, No motor deficit, No sensory deficit, Normal speech, Other (Significant tremoring on both sides but more slightly to the right. It in both arms and legs but more in the arms. There is significant hyperreflexia of the knees and elbows.) Eye Opening: Spontaneous Motor: Obeys Commands Verbal: Oriented GCS Score: 15 - Psych Psych: Normal mood, Normal affect Results - Vitals Vitals: Vital Signs - 24 hr 09/20/18 09/20/18 09/20/18 11:22 11:47 13:05 Temperature 36.9 C 36.6 C Heart Rate 73 77 68 Respiratory 17 20 13 Rate Blood Pressure 118/81 H 126/75 112/70 O2 Saturation 95 99 98 09/20/18 14:49 Temperature 36.7 C Heart Rate 65 Respiratory 18 Rate Blood Pressure 116/73 O2 Saturation 95 Oxygen O2 Source Room air - Labs Labs: Laboratory Tests 09/20/18 09/20/18 09/20/18 11:42 11:42 11:42 WBC 4.2 L RBC 3.59 L Hgb 12.7 Hct 37.9 MCV 105.6 H MCH 35.4 H MCHC 33.5 RDW 15.2 H Plt Count 328 MPV 9.1 Neut # (Auto) 3.2 Lymph # (Auto) 0.[address] [place] # (Auto) 0.3 Eos # (Auto) 0.0 Baso # (Auto) 0.0 Absolute Nucleated RBC 0.00 Nucleated RBC % 0.0 Sodium 141 Potassium 4.4 Chloride 105 Carbon Dioxide 21 Anion Gap 15.0 H BUN 12 Creatinine 1.0 Estimated GFR (MDRD) 54 L Glucose 122 H Lactic Acid 1.3 Calcium 8.6 Magnesium 2.6 Total Bilirubin 0.6 AST 21 ALT 14 Alkaline Phosphatase 48 Total Creatine Kinase 97 Total Protein 6.6 L Albumin 4.1 Globulin 2.5 Albumin/Globulin Ratio 1.6 Lipase 28 TSH Urine Color Urine Clarity Urine pH Ur Specific [place] Urine Protein Urine Glucose (UA) Urine Ketones Urine Occult Blood Urine Nitrite Urine Bilirubin Urine Urobilinogen Ur Leukocyte Esterase Urine RBC Urine WBC Ur Squamous Epith Cells Urine Bacteria Ur Microscopic Review Urine Culture Comments 09/20/18 09/20/18 11:42 13:43 WBC RBC Hgb Hct MCV MCH MCHC RDW Plt Count MPV Neut # (Auto) Lymph # (Auto) [place] # (Auto) Eos # (Auto) Baso # (Auto) Absolute Nucleated RBC Nucleated RBC % Sodium Potassium Chloride Carbon Dioxide Anion Gap BUN Creatinine Estimated GFR (MDRD) Glucose Lactic Acid Calcium Magnesium Total Bilirubin AST ALT Alkaline Phosphatase Total Creatine Kinase Total Protein Albumin Globulin Albumin/Globulin Ratio Lipase TSH 1.55 Urine Color YELLOW Urine Clarity CLEAR Urine pH 8.0 H Ur Specific [place] 1.010 Urine Protein NEGATIVE Urine Glucose (UA) NEGATIVE Urine Ketones NEGATIVE Urine Occult Blood NEGATIVE Urine Nitrite NEGATIVE Urine Bilirubin NEGATIVE Urine Urobilinogen 0.2 (NORMAL) Ur Leukocyte Esterase SMALL H Urine RBC None Seen Urine WBC 0-3 Ur Squamous Epith Cells MOD Squamous H Urine Bacteria None Seen Ur Microscopic Review INDICATED Urine Culture Comments NOT INDICATED PD MEDICAL DECISION MAKING - ED course Complexity details: re-evaluated patient (Some improvement with lorazepam but much. She did have more improvement with Benadryl IV but still fairly ataxic and having tremoring. This may suggest some element of extraparametal which may be more from the sertraline. However generally she does have the tremoring confusion and hyperreflexia suggestive of serotonin syndrome by the Hardeep Criteria. She had not had changes in medicines recently but had had a weight loss so may have hit a tipping point on the medications. Does look like she is on reasonably high doses of medications for that could affect that. She is unable to walk still on her own. I will talk with the hospitalist about further care.), considered differential (We will look for electrolyte problems. Also get a head CT given the recent injury and also some confusion. Her tremoring is bilateral and looks more metabolic or medication related. There is no focal deficit per se. She does have significant tremoring, confusion and does have very notable hyperreflexia so consider serotonin syndrome given her medication list. She has not had any recent change in medicines but has had 6 or 7 pounds of weight loss in the last month through weight watchers. She is having difficulty walking and was unable to get to the bathroom on her own because of it. As such she will be a safety concern.), d/w patient Departure - Departure Disposition: ED Place in Observation Clinical Impression: Tremor of both hands, Confusion, Hyperreflexia, Serotonin syndrome Condition: Stable Record reviewed to determine appropriate education?: Yes
[2018-09-20] MEDS ORDERED: SODIUM CHLORIDE 0.9% 1,000 ML IV ONE (11:47)
[2018-09-20] MEDS ORDERED: LORazepam 2 MG/ML VIAL IVP STA (11:48)
[2018-09-20 12:16] LABS: BASOPHILS % (AUTO) 0.2 %; HGB - HEMOGLOBIN 12.7 g/dL (12.0-16.0); LYMPHOCYTES # (AUTO) 0.6 10^3/uL (1.5-3.5); LYMPHOCYTES % (AUTO) 13.9 %; MEAN CORPUSCULAR HEMOGLOBIN 35.4 pg (27.0-31.0); MEAN CORPUSCULAR HGB CONC 33.5 g/dL (32.0-36.0); MEAN CORPUSCULAR VOLUME 105.6 fL (81.0-99.0); MEAN PLATELET VOLUME 9.1 fL (7.9-10.8); MONOCYTES # (AUTO) 0.3 10^3/uL (0.0-1.0); MONOCYTES % (AUTO) 7.7 %; NEUTROPHILS # (AUTO) 3.2 10^3/uL (1.5-6.6); PLT - PLATELET COUNT 328 10^3/uL (130-450); RED BLOOD COUNT 3.59 10^6/uL (4.20-5.40); RED CELL DISTRIBUTION WIDTH 15.2 % (12.0-15.0); WHITE BLOOD COUNT 4.2 x10^3/uL (4.8-10.8)
[2018-09-20 12:25] LABS: ALBUMIN 4.1 g/dL (3.2-5.5); ALBUMIN/GLOBULIN RATIO 1.6 (1.0-2.2); BILIRUBIN,TOTAL 0.6 mg/dL (0.2-1.0); CALCIUM 8.6 mg/dL (8.5-10.3); MAGNESIUM 2.6 mg/dL (1.7-2.8); TOTAL PROTEIN 6.6 g/dL (6.7-8.2)
[2018-09-20] MEDS ORDERED: diphenhydrAMINE INJ 50 MG/ML VIAL IVP STA (13:43)
[2018-09-20 13:49] LABS: BILIRUBIN,URINE NEGATIVE (NEGATIVE); GLUCOSE, URINE (UA) NEGATIVE (NEGATIVE); KETONES,URINE (UA) NEGATIVE (NEGATIVE); LEUKOCYTE ESTERASE, URINE SMALL (NEGATIVE); NITRITE,URINE NEGATIVE (NEGATIVE); OCCULT BLOOD,URINE NEGATIVE (NEGATIVE); PROTEIN,URINE NEGATIVE (NEGATIVE); UROBILINOGEN,URINE 0.2 (NORMAL) E.U./dL (NORMAL)
[2018-09-20 13:56] LABS: CLARITY,URINE CLEAR (CLEAR)
[2018-09-20 14:01] LABS: BACTERIA,URINE None Seen /HPF (None Seen); RBC,URINE None Seen /HPF (0-5); SQUAMOUS EPITHELIAL CELL,UR MOD Squamous (<= Few)
--- NOTE | 2018-09-20 14:50 | CT Report ---
Reason: fall yesterday and struck head; shaky today Procedure Date: 09/20/2018 Accession Number: [id number] / [id number] Procedure: CT - HEAD WO CPT Code: FULL RESULT: EXAM: CT HEAD EXAM DATE: 09/20/2018 12:55 PM. CLINICAL HISTORY: Fall yesterday and struck head; shaky today. COMPARISON: HEAD ANGIO 05/08/2017 6:04 PM. TECHNIQUE: Multiaxial CT images were obtained from the foramen magnum to the vertex. Reformats: Sagittal and coronal. IV contrast: None. In accordance with CT protocol optimization, one or more of the following dose reduction techniques were utilized for this exam: automated exposure control, adjustment of mA and/or KV based on patient size, or use of iterative reconstructive technique. FINDINGS: Parenchyma: No acute intraparenchymal hemorrhage. No evidence of mass or midline shift. Stanley-white differentiation is distinct. Mild generalized cerebral volume loss most notable in the frontal lobes. Mild hypodense changes to the periventricular white matter, which can be seen with chronic small vessel ischemic disease. Extraaxial Spaces: No subdural or epidural collections identified. Ventricles: Normal in size. Sinuses and Orbits: Imaged paranasal sinuses, orbits, and mastoids show no significant abnormality. Bones: No evidence of fracture or calvarial defect. Redemonstrated midline occipital osteoma. Other: None. IMPRESSION: No acute intracranial findings. An acute infarct may not be visible by CT. Follow-up examinations recommended as clinically indicated. RADIA
--- NOTE | 2018-09-20 14:50 | XRAY Report ---
Reason: finesse and troy Procedure Date: 09/20/2018 Accession Number: [id number] / [id number] Procedure: XR - Chest 1 View X-Ray CPT Code: 08512 FULL RESULT: EXAM: CHEST RADIOGRAPHY EXAM DATE: 09/20/2018 12:41 PM. CLINICAL HISTORY: Arpan. COMPARISON: CHEST 2 VIEW PA/LAT 11/13/2016 1:26 PM. TECHNIQUE: 1 view. FINDINGS: Lungs/Pleura: Possible nodular densities left upper lobe between posterior fourth and fifth rib and between posterior fifth and sixth rib.. No pleural effusion. No pneumothorax. Mediastinum: Heart size normal. Ectatic aorta. Other: Levoscoliosis. Old left rib fractures. Loose bodies right shoulder, possibly left shoulder IMPRESSION: Possible nodular densities left upper lung RADIA
[2018-09-20] MEDS ORDERED: PROCHLORPERAZINE 10 MG/2 ML VIAL IVP PRN (15:39)
[2018-09-20] MEDS ORDERED: SODIUM CHLORIDE FLUSH 0.9% 10 ML SYRINGE IVP PRN (15:39)
[2018-09-20] MEDS ORDERED: ACETAMINOPHEN 325 MG TABLET PO PRN (15:39)
[2018-09-20] MEDS ORDERED: D5NS W/20 MEQ KCL 1,000 ML IV SCH (16:00)
[2018-09-20] MEDS: SODIUM CHLORIDE FLUSH 0.9% 10 ML SYRINGE IVP SCH (18:46)
[2018-09-20] MEDS: DEXTROSE 5%-0.9% NACL 1,000 ML IV SCH (18:46)
--- NOTE | 2018-09-20 20:47 | HISTORY & PHYSICAL EXAMINATION ---
DATE OF SERVICE: 09/20/2018 Physician: Mary Shaffer MD HISTORY OF PRESENT ILLNESS: This is a 73-year-old white female with a remote history of cocaine abuse and alcohol abuse, she has been "sober from these for 30 years" according to the daughter, also has a history of depression on 3 medications, thrombocytosis, and probable dementia. Patient lives alone. The daughter visits her, and the daughter gives most of the history, but patient answers most questions appropriately, and some questions with "I don't know." Three days ago, there was sudden onset of a head tremor and possibly more confusion. Today, there was onset of hand tremor of both sides, and patient fell in her house from feeling unbalanced. There was no syncope. Patient can remember the entire event. She states that she hit the left side of her head on the floor, but was able to get up immediately, did not have any residual complaints. She called her daughter, but there was no answer. Therefore, she called her [id number] who came to take her to the hospital. According to patient, the reason she wanted to come to the hospital was the new tremor, not the fall. In the emergency room, she was evaluated and found to have both hyperreflexia of her upper and lower extremities and tremor at rest, equally on both sides of both upper and lower extremities. She has never had a tremor before 3 days ago. Patient usually gets her medications put out into a weekly container by her daughter, but in the past 1 month patient has done this on her own. Patient states she ran out of one of her medicines, but cannot remember which. Patient also admits that "she probably took her medications incorrectly." PAST MEDICAL HISTORY: Remote history of cocaine abuse and alcohol abuse, depression, thrombocytosis, dementia. ALLERGIES: HYDROCODONE AND OXYCODONE. MEDICATIONS These are an approximations, since the patient and daughter do not have the exact current list or any bottles ; 1. Tylenol p.r.n. 2. Isogen electrolyte drinks to lose weight. 3. Namenda 10 mg daily (was stopped approximately a week ago, possibly). 4. Aricept 10 mg daily (was stopped approximately a week ago, possibly). 5. Lamictal 100 daily (for depression, not for seizure). 6. Hydroxazine 10 mg b.i.d. p.r.n. 7. Sertraline 200 mg daily. 8. Bupropion 450 mg daily, but possibly b.i.d. 9. Acyclovir p.r.n. cold sore. SOCIAL HISTORY: The patient lives alone, is able to make her own meals, goes to aerobics classes and visits with friends approximately 3 times a week, which has helped with the depression recently. The patient does not drive a car over the last 1 year, because of dementia. The patient is not a smoker now, quit over 30 years ago. She had history of cocaine abuse and alcohol abuse, which are negative for the past 30 years. FAMILY HISTORY: No inherited diseases. She has 2 children who are healthy. REVIEW OF SYSTEMS: Comprehensive review of systems was performed and the pertinent positives are all listed above, the rest are negative. PHYSICAL EXAMINATION GENERAL: Elderly white female. She is in no distress. VITAL SIGNS: Blood pressure 126/75, pulse 77 in sinus rhythm, afebrile, room air saturation 95%. HEENT: Unremarkable except for poor dentition of the lower jaw. Her oral mucosa is moist. NECK: No JVD or carotid bruits. CHEST: Clear. HEART: Normal heart sounds. ABDOMEN: Soft and benign. EXTREMITIES: No edema. NEUROLOGIC: She is hyperreflexic of both upper extremities, normal reflexes of the lower extremities including negative Babinski's. She has no nystagmus, normal [id number]. She has a resting tremor that gets worse intermittently. No intentional tremor. Memory is difficult to assess, she says, "I don't know" for some detailed questions, but knows other detailed answers and offers these spontaneously. Her gait was not assessed. LABORATORIES: Normal electrolytes. Normal BUN and creatinine. Normal lactic acid of 1.3. Normal liver tests. Normal lipase and TSH. White blood count 4.2, hemoglobin 12.7 with MCV of 105.6, platelet count normal at 328. Urinalysis unremarkable. There were moderate squamous cells however. CHEST X-RAY: Possible nodular densities in the left upper lung. Normal cardiac size. HEAD CT: No intracranial bleeding, no fracture. EKG: Normal sinus rhythm and within normal limits. IMPRESSION/DIAGNOSES 1. New tremor with hyperreflexia, therefore possible serotonin syndrome. 2. Acute (on chronic) confusion. 3. Fall at home. 4. History of dementia. 5. Medication noncompliance/confusion with her medicines and possibly incorrect dosing. 6. Depression. 7. Macrocytosis. 8. History of thrombocytosis. 9. Lung nodules. 10. History of remote cocaine and alcohol abuse. PLAN 1. Place the patient in Observation status, on telemetry. 2. Hold the SSRIs. 3. Begin IV hydration. 4. Follow her neurologic exam, especially regarding the tremor. 5. Neurology consult via phone call planned for further direction of evaluation and management. 6. Because of the fall, no out of bed independently. She needs help, even to a bedside commode. 7. Will order physical therapy for gait assessment. 8. The pharmacist has tried to get an accurate list of what she was taking at home, and the daughter will bring in the list or the bottles to be confirmed. However, even with this, it is unclear what the patient was taking because of her underlying dementia and worsening recent confusion. CODE STATUS: DNR. DEEP VENOUS THROMBOSIS PROPHYLAXIS: NINO stockings. ATTESTATION: The patient is expected to be discharged or transferred to another facility within 96 hours: Yes. cc: Chapito Potter DO TD: 09/20/2018 19:44 MTDD
[2018-09-20] MEDS: FAMOTIDINE 20 MG TABLET PO SCH (21:09)
[2018-09-20] MEDS: diphenhydrAMINE 25 MG CAPSULE PO PRN (21:09)
[2018-09-21] MEDS: SODIUM CHLORIDE FLUSH 0.9% 10 ML SYRINGE IVP SCH ×2 (02:41→10:23)
[2018-09-21] MEDS: POLYETHYLENE GLYCOL 3350 17 GM PACKET PO SCH (08:17)
[2018-09-21] MEDS: FAMOTIDINE 20 MG TABLET PO SCH (08:18)
[2018-09-21] MEDS: lamoTRIgine 100 MG TABLET PO SCH (08:18)
[2018-09-21] MEDS ORDERED: A & D OINTMENT 5 GM PACKET TOP PRN (10:15)
[2018-09-21] MEDS: DEXTROSE 5%-0.9% NACL 1,000 ML IV SCH (10:18)
[2018-09-21] MEDS: DOCUSATE SODIUM 250 MG CAPSULE PO SCH (12:10)
[2018-09-21] MEDS: MULTIVITAMIN W/MINERALS TABLET PO SCH (12:14)
--- NOTE | 2018-09-21 16:13 | PROVIDER PROGRESS NOTE ---
Assessment/Plan - Problem List (1) Serotonin syndrome Assessment/Plan: She has 1 feature out of 4 possible presentations (per UpToDate) that would be consistent with Serotonin syndrome (hyperreflexia and tremor), which are still present today. She is not rigid, or hyperpyrexic, which are more common. I spoke to the Neurologist Evp General Counsel at [facility], who heard the history, wrote down the list of her medications and doses to review, did recommend a brain MRI and stated that Serotonin syndrome could take several more days to resolve, after the medication was stopped. The patient will be to transferred to full inpatient status, and continue with neurologic evaluation. Telemetry and IV will be stopped, liberalize activity. (2) Confusion Assessment/Plan: She had OT evaluation and scored 8/30 on the Mini-Mental exam. She mary ann her clock entirely in the right side of the [place], the OT asked if she has trouble reading and the patient admitted she has had dyslexia since childhood. Also, unfortunately, we have no way of knowing how the patient was actually taking her home medications because of her memory problems. This may have been an unintentional OD, leading to tremor and unsteady gait and more confusion. (3) Depression Assessment/Plan: The patient feels tired today and "thinks it is from her depression". Social work saw this patient. The SW note states that the patient has said "I could take all these medications and nobody would care", but the the patient has no actual suicidal ideations. The pharmacist, Kourtney, did a thorough job of calling the PCP at the [facility] and the Psychiatrist's office at [facility] to determine exactly what medications had been prescribed. Unfortunately, we have no way of knowing how the patient was actually taking them because of her memory problems. (4) Thrombocythemia Assessment/Plan: She was prescribed to get Hydroxyurea for this, it will be continued. - Current Meds Current Meds: Current Medications Generic Name Dose Route Start Last Admin Trade Name Freq PRN Reason Stop Dose Admin Diphenhydramine HCl 25 mg 09/20/18 19:12 09/20/18 21:09 Benadryl PO 25 mg QPM PRN Administration Insomnia Docusate Sodium 250 - 500 mg 09/21/18 09:00 09/21/18 12:10 Colace 250mg Capsule PO 250 mg DAILY ROSA ISELA Administration Famotidine 20 mg 09/20/18 21:00 09/21/18 08:18 Pepcid PO 20 mg BID ROSA ISELA Administration Lamotrigine 100 mg 09/21/18 09:00 09/21/18 08:18 Lamictal PO 100 mg DAILY ROSA ISELA Administration Multivitamins/Minerals 1 tab 09/21/18 12:00 09/21/18 12:14 Theragran M PO 1 tab DAILYWM ROSA ISELA Administration Polyethylene Glycol 17 gm 09/21/18 09:00 09/21/18 08:17 Miralax PO 17 gm DAILY ROSA ISELA Administration Vitamin A/Vitamin D 1 applic 09/21/18 10:15 09/21/18 10:20 Vitamin A & D Ointment TOP 1 applic PRN PRN Administration Skin Care - Lab Result Fish Bone Diagrams: 09/20/18 11:42 09/20/18 11:42 - Additional Planning My Orders: My Active Orders 09/20/18 15:39 Acetaminophen [Tylenol] 650 mg PO Q4HR PRN 09/20/18 15:40 Activity Orders [RC] Q2HR IO [RC] IOSHIFT Initiate Bowel Care Protocol [RC] .protocol Initiate Line Care Protocol [RC] QSHIFT Initiate Personal Care Protoco [RC] .protocol Oxygen Therapy [RC] Routine Vital Signs [RC] Q8HR Code Status [OTHERS] Routine Condition of Patient [OTHERS] Routine DVT Prophylaxis [OTHERS] Routine 09/20/18 15:41 IV Insert [RC] .ONCE 09/20/18 15:42 NINO Murphy [RC] QSHIFT Evaluate and Treat OT [OT] Routine Evaluate and Treat PT [PT] Routine 09/20/18 15:49 Telemetry (24 Hour) [RC] Q4HR 09/20/18 21:00 Famotidine [Pepcid] 20 mg PO BID 09/20/18 Dinner Regular Diet [DIET] 09/21/18 09:00 Docusate Sodium 250Mg Capsule [Colace 250Mg Capsule] 250 - 500 mg PO DAILY Polyethylene Glycol 3350 [Miralax] 17 gm PO DAILY lamoTRIgine [LaMICtal] 100 mg PO DAILY 09/21/18 10:15 A & D Ointment [Vitamin A & D Ointment] 1 applic TOP PRN PRN 09/21/18 12:00 Multivitamin W/Minerals [Theragran M] 1 tab PO DAILYWM 09/21/18 15:34 Head [BRAIN W/WO] [MRI] Stat 09/21/18 16:05 Telemetry-Discontinue [RC] .ONCE 09/21/18 16:07 Transfer [Admit \\ Transfer \\ Status] [RC] .ONCE Subjective - Subjective Patient Reports: Other (same tremor which is intermittent, wants her Acyclovir for "pain in genitalia".) Nursing Reports: Other (Had OT and PT eval) Objective Vital Signs: Vital Signs - 24 hr 09/20/18 09/20/18 09/20/18 17:02 19:00 20:45 Temperature 36.5 C 36.7 C 36.7 C Heart Rate 66 Heart Rate [ Activity] Heart Rate [ 65 66 Brachial] Heart Rate [ Supine] Respiratory 20 20 20 Rate Blood Pressure [Activity] Blood Pressure 123/65 101/59 L [Right Brachial artery] Blood Pressure [Supine] O2 Saturation 98 95 95 09/20/18 09/21/18 09/21/18 23:25 04:17 07:35 Temperature 36.5 C 36.5 C 36.4 C L Heart Rate Heart Rate [ Activity] Heart Rate [ 60 54 L 86 Brachial] Heart Rate [ Supine] Respiratory 16 16 18 Rate Blood Pressure [Activity] Blood Pressure 109/57 L 105/56 L 123/69 [Right Brachial artery] Blood Pressure [Supine] O2 Saturation 97 96 96 09/21/18 09/21/18 09/21/18 11:00 12:39 16:00 Temperature 36.8 C Heart Rate Heart Rate [ 65 65 Activity] Heart Rate [ 66 58 L Brachial] Heart Rate [ 66 66 Supine] Respiratory 18 16 Rate Blood Pressure 118/74 118/74 [Activity] Blood Pressure 109/61 102/61 [Right Brachial artery] Blood Pressure 109/61 109/61 [Supine] O2 Saturation 95 97 Oxygen O2 Source Room air I&O (Last 24 Hrs): Intake and Output Totals x24h 09/19/18 09/20/18 09/21/18 23:59 23:59 23:59 Intake Total 1650 1792 Output Total 600 Balance 1050 1792 General: Alert, Other (Poor memory) HEENT: Atraumatic, Mucous membr. moist/pink Neck: Supple Neuro: Other (Hyper-reflexic UEs) Cardiovascular: Regular rate Respiratory: No respiratory distress Abdomen: Soft Extremities: No edema - Results Results: Laboratory Results WBC 4.2 x10^3/uL (4.8-10.8) L 09/20/18 11:42 RBC 3.59 10^6/uL (4.20-5.40) L 09/20/18 11:42 Hgb 12.7 g/dL (12.0-16.0) 09/20/18 11:42 Hct 37.9 % (37.0-47.0) 09/20/18 11:42 MCV 105.6 fL (81.0-99.0) H 09/20/18 11:42 MCH 35.4 pg (27.0-31.0) H 09/20/18 11:42 MCHC 33.5 g/dL (32.0-36.0) 09/20/18 11:42 RDW 15.2 % (12.0-15.0) H 09/20/18 11:42 Plt Count 328 10^3/uL (130-450) 09/20/18 11:42 MPV 9.1 fL (7.9-10.8) 09/20/18 11:42 Neut # (Auto) 3.2 10^3/uL (1.5-6.6) 09/20/18 11:42 Lymph # (Auto) 0.6 10^3/uL (1.5-3.5) L 09/20/18 11:42 [place] # (Auto) 0.3 10^3/uL (0.0-1.0) 09/20/18 11:42 Eos # (Auto) 0.0 10^3/uL (0.0-0.7) 09/20/18 11:42 Baso # (Auto) 0.0 10^3/uL (0.0-0.1) 09/20/18 11:42 Absolute Nucleated RBC 0.00 x10^3/uL 09/20/18 11:42 Nucleated RBC % 0.0 /100WBC 09/20/18 11:42 Sodium 141 mmol/L (135-145) 09/20/18 11:42 Potassium 4.4 mmol/L (3.5-5.0) 09/20/18 11:42 Chloride 105 mmol/L (101-111) 09/20/18 11:42 Carbon Dioxide 21 mmol/L (21-32) 09/20/18 11:42 Anion Gap 15.0 (6-13) H 09/20/18 11:42 BUN 12 mg/dL (6-20) 09/20/18 11:42 Creatinine 1.0 mg/dL (0.4-1.0) 09/20/18 11:42 Estimated GFR (MDRD) 54 (>89) L 09/20/18 11:42 Glucose 122 mg/dL (70-100) H 09/20/18 11:42 Lactic Acid 1.3 mmol/L (0.5-2.2) 09/20/18 11:42 Calcium 8.6 mg/dL (8.5-10.3) 09/20/18 11:42 Magnesium 2.6 mg/dL (1.7-2.8) 09/20/18 11:42 Total Bilirubin 0.6 mg/dL (0.2-1.0) 09/20/18 11:42 AST 21 IU/L (10-42) 09/20/18 11:42 ALT 14 IU/L (10-60) 09/20/18 11:42 Alkaline Phosphatase 48 IU/L (42-121) 09/20/18 11:42 Total Creatine Kinase 97 IU/L (22-269) 09/20/18 11:42 Total Protein 6.6 g/dL (6.7-8.2) L 09/20/18 11:42 Albumin 4.1 g/dL (3.2-5.5) 09/20/18 11:42 Globulin 2.5 g/dL (2.1-4.2) 09/20/18 11:42 Albumin/Globulin Ratio 1.6 (1.0-2.2) 09/20/18 11:42 Lipase 28 U/L (22-51) 09/20/18 11:42 TSH 1.55 uIU/mL (0.34-5.60) 09/20/18 11:42 Urine Color YELLOW 09/20/18 13:43 Urine Clarity CLEAR (CLEAR) 09/20/18 13:43 Urine pH 8.0 PH (5.0-7.5) H 09/20/18 13:43 Ur Specific [place] 1.010 (1.002-1.030) 09/20/18 13:43 Urine Protein NEGATIVE mg/dL (NEGATIVE) 09/20/18 13:43 Urine Glucose (UA) NEGATIVE mg/dL (NEGATIVE) 09/20/18 13:43 Urine Ketones NEGATIVE mg/dL (NEGATIVE) 09/20/18 13:43 Urine Occult Blood NEGATIVE (NEGATIVE) 09/20/18 13:43 Urine Nitrite NEGATIVE (NEGATIVE) 09/20/18 13:43 Urine Bilirubin NEGATIVE (NEGATIVE) 09/20/18 13:43 Urine Urobilinogen 0.2 (NORMAL) E.U./dL (NORMAL) 09/20/18 13:43 Ur Leukocyte Esterase SMALL (NEGATIVE) H 09/20/18 13:43 Urine RBC None Seen /HPF (0-5) 09/20/18 13:43 Urine WBC 0-3 /HPF (0-5) 09/20/18 13:43 Ur Squamous Epith Cells MOD Squamous (<= Few) H 09/20/18 13:43 Urine Bacteria None Seen /HPF (None Seen) 09/20/18 13:43 Ur Microscopic Review INDICATED 09/20/18 13:43 Urine Culture Comments NOT INDICATED 09/20/18 13:43
[2018-09-21] MEDS ORDERED: ZINC OXIDE 20% OINT 28.35 GM TUBE TOP PRN (17:09)
[2018-09-21] MEDS ORDERED: GADOBUTROL 7.5 MMOL/7.5 ML VIAL IVP ONE (17:29)
[2018-09-21] MEDS ORDERED: FAMOTIDINE 20 MG TABLET PO SCH (19:17)
[2018-09-21] MEDS ORDERED: GADOBUTROL 7.5 MMOL/7.5 ML VIAL IV ONE (20:40)
--- NOTE | 2018-09-21 21:27 | MRI Report ---
Reason: New bilateral tremor and hyper-reflexia Procedure Date: 09/21/2018 Accession Number: [id number] / [id number] Procedure: MRI - Brain W/WO CPT Code: FULL RESULT: EXAM: MRI BRAIN WITHOUT AND WITH CONTRAST. EXAM DATE: 09/21/2018 08:53 PM. CLINICAL HISTORY: New bilateral tremor and hyper-reflexia. COMPARISON: None. TECHNIQUE: Multiplanar, multisequence T1-weighted and fluid-sensitive MR sequences of the brain were performed. Sequences optimized for routine evaluation. Other: None. IV Contrast: 7 cc Gadavist. FINDINGS: Motion artifact technically limits evaluation. Brain Volume: Normal for age. Parenchyma: No acute parenchymal hemorrhage, mass, or midline shift. Minimal to mild bilateral areas of T2/FLAIR signal hyperintensity seen. No areas of restricted diffusion seen to suggest acute infarct. No definite areas of abnormal parenchymal susceptibility artifact allen. No abnormal enhancement. Ventricles/Cisterns: No hydrocephalus. No abnormal extra-axial fluid collection or hemorrhage. Orbits: Symmetric and unremarkable. Sella Turcica: The pituitary gland, cavernous sinuses, suprasellar cistern and optic chiasm are unremarkable. IAC: Symmetric and unremarkable. Vasculature: Normal signal flow void is seen in the major arterial structures at the skull base. The dural sinuses are patent and enhance normally. Sinuses: No acute sinus disease. Bones: No focal pathologic appearing marrow signal changes. Other: None. IMPRESSION: 1. Motion artifact technically limits evaluation. Please note that small or subtle pathology can be missed. 2.No definite acute intracranial pathology seen; specifically no acute infarct, acute intracranial hemorrhage, mass, hydrocephalus, or midline shift. No abnormal post-contrast enhancement. 3. Minimal to mild white matter changes seen that are non-specific but may represent sequela of chronic small vessel ischemic disease. RADIA
[2018-09-21] MEDS: ACYCLOVIR 200 MG CAPSULE PO SCH (21:33)
[2018-09-21] MEDS: FERROUS GLUCONATE 324 MG TABLET PO SCH (21:36)
[2018-09-21] MEDS: diphenhydrAMINE 25 MG CAPSULE PO PRN (21:40)
[2018-09-21] MEDS ORDERED: LORazepam 2 MG/ML VIAL IVP STA (23:44)
[2018-09-22] MEDS ORDERED: SODIUM CHLORIDE FLUSH 0.9% 10 ML SYRINGE ONE (00:06)
[2018-09-22] MEDS: FERROUS GLUCONATE 324 MG TABLET PO SCH (08:24)
[2018-09-22] MEDS: MULTIVITAMIN W/MINERALS TABLET PO SCH (08:25)
[2018-09-22] MEDS: lamoTRIgine 100 MG TABLET PO SCH (08:25)
[2018-09-22] MEDS: DOCUSATE SODIUM 250 MG CAPSULE PO SCH (08:25)
[2018-09-22] MEDS: ACYCLOVIR 200 MG CAPSULE PO SCH (08:26)
[2018-09-22] MEDS ORDERED: HYDROXYUREA 500 MG CAPSULE PO SCH (09:00)
[2018-09-22 15:40] VITALS: BP 113/71
--- NOTE | 2018-09-22 16:12 | Discharge Plan ---
Discharge Plan Problem Reviewed?: Yes Disposition: Home, Self Care Condition: Stable Diet: Regular Activity Restrictions: Activity as Tolerated Shower Restrictions: No Driving Restrictions: Yes Health Concerns: New tremor and worse gait and worse confusion were felt to be caused by excessive medications, probably being taken incorrectly, ever since the medications were being organized and managed by patient. Plan of Treatment: Resume your usual medications but they MUST BE organied by daughter or a pharmacy (pre-packaged). Care Goals: Return back to previous level of function, before tremors started. Assessment: The patient seems to understand and the DPOA ([id number]) agrees with the plan. Additional Instructions or Follow Up instructions: Call your PCP and Psychiatrist to request that pills be dispensed pre-packaged, if possible. Resume the pre-hospital medications by FOLLOWING THE MEDICATION LIST WRITTEN HERE>> No Smoking: If you smoke, Please STOP! Call for help. Follow-up with: Chapito Potter DO [Primary Care Provider] -
[2018-09-22] MEDS: POLYETHYLENE GLYCOL 3350 17 GM PACKET PO SCH (16:59)
--- NOTE | 2018-09-28 14:25 | DISCHARGE SUMMARY ---
Discharge Summary Admit Date: 09/20/18 Discharge Date: 09/22/18 Discharging Provider: Dr Mary Shaffer Primary Care Provider: Dr Chapito Potter Code Status: Do Not Attempt Resuscitation Condition at Discharge: Stable Discharge Disposition: 01 Home, Self Care - DIAGNOSES Admission Diagnoses: 1) Possible Serotonin syndrome with new tremors and hyperreflexia 2) Dementia 3) Fall at home 4) Depression Discharge Diagnoses with Status of Each Condition: See below - HPI History of Present Illness: This is a 73 y/o white female with a history of dementia, depression, remote drug (cocaine) and alcohol abuse 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 The patient lives alone, has scheduled aerobics classes and other events with friends and the daughter used to put out her medications, which the patient started to do on her own 1 month ago (unsupervised). She is on multiple anti- depressants. Three days before this admission, the daughter noticed a head tremor and on the day of admission the patient noticed a new hand tremor and gait imbalance and she fell at home, without syncope. The patient called a family member who brought her to the ER. She was confused more than her baseline (per family) and found to have hyper-reflexia and an intermittent hand tremor of both sides. Her imaging showed no areas of fracture or trauma. She was placed in Observation initially for further testing and Neurology at [facility] input. Her symptoms did not relent by the second day and she was then made an Inpatient admission. - CONSULTS | PROCEDURES Consultations: Phone consult with the [facility] neurologist on-call on 09/21/18 - HOSPITAL COURSE Hospital Course: (1) Serotonin syndrome She has 1 feature out of 4 possible presentations (per UpToDate) that would be consistent with Serotonin syndrome (hyperreflexia and tremor), which were present for 2 days, improved on day #3. She was not rigid, or hyperpyrexic, which are more common, according to the Neurologist Baler Operator at [facility], who heard the history, wrote down the list of her medications and doses to review (but did not call back). He did recommend a brain MRI and stated that Serotonin syndrome could take several more days to resolve after the medication was stopped. The brain MRI showed no acute findings. She had continued neurologic monitoring. She was seen by PT and had improvement in gait and less tremor on day #3 and was discharged home. (2) Confusion She had OT evaluation and scored 8/30 on the Mini-Mental exam. She mary ann her clock entirely in the right side of the [place], the OT asked if she has trouble reading and the patient admitted she has had dyslexia since childhood. Also, unfortunately, we had no way of knowing how the patient was actually taking her home anti=depressant and other medications because of her memory problems. This event was suspected to have been an unintentional OD, leading to several days of tremor and unsteady gait and more confusion. Social Work had a meeting with the patient, daughter and [id number] (the DPOA) and the plan was to resume the previous metering out of the patient's medications and not allow the patient to do this unsupervised any longer. The patient agreed to the plan. (3) Depression The patient felt tired and "thinks it is from her depression". Social work saw this patient. The SW note states that the patient has said "I could take all these medications and nobody would care", but the the patient has no actual suicidal ideations. The pharmacist called the PCP at the [facility] and the Psychiatrist's office at [facility] to determine exactly what medications had been prescribed. Unfortunately, we have no way of knowing how the patient was actually taking them because of her memory problems. (4) Thrombocythemia She was prescribed to get Hydroxyurea for this, and it will be continued while she was here. (5) Lung nodules She used to be a cigarette and cocaine smoker. These nodules will need follow-up and future evaluation. - ALLERGIES Allergies/Adverse Reactions: Allergies Allergy/AdvReac Type Severity Reaction Status Date / Time hydrocodone bitartrate * AdvReac Mild Itching Verified 09/20/18 11:27 [From Vicodin] oxycodone HCl * AdvReac Mild Itching Verified 09/20/18 11:27 [From Percocet] - MEDICATIONS Home Medications: Ambulatory Orders Medication Instructions Recorded Confirmed Bupropion HCl [Bupropion Xl] 300 mg PO DAILY MDD +150mg, total 05/28/15 09/21/18 dose 450 mg Sertraline HCl 200 mg PO DAILY 05/28/15 09/20/18 Bupropion HCl [Bupropion Xl] 150 mg PO DAILY MDD +300 mg total 01/20/17 09/21/18 dose 450 mg Acyclovir 400 mg PO BID PRN 09/21/18 09/21/18 Aspirin Chewable [St Gerard 81 mg PO DAILY 09/21/18 09/21/18 Aspirin] Clobetasol Propionate 1 applic TOP BID 09/21/18 09/21/18 Donepezil HCl 10 mg PO DAILY 09/21/18 Escitalopram [Lexapro] 10 mg PO DAILY 09/21/18 Ferrous Gluconate 324 mg PO BID 09/21/18 09/21/18 Hydroxyurea 500 mg PO DAILY 09/21/18 09/21/18 Memantine HCl 10 mg PO DAILY 09/21/18 Trazodone HCl 50 mg PO QPM PRN 09/21/18 09/21/18 hydrOXYzine HCl [Hydroxyzine HCl] 5 mg PO DAILY PRN MDD bid 09/21/18 09/21/18 lamoTRIgine [LaMICtal] 100 mg PO DAILY 09/21/18 09/21/18 - PHYSICAL EXAM AT DISCHARGE General Appearance: positive: No acute distress Eyes Bilateral: positive: Normal inspection ENT: positive: ENT inspection nml Neck: positive: Nml inspection, No JVD Respiratory: positive: Chest non-tender, No respiratory distress Cardiovascular: positive: Regular rate & rhythm, No murmur Abdomen: positive: Non-tender, No distention Extremities: positive: No pedal edema Neurologic/Psychiatric: positive: Other (Grossly normal) Reflexes: Bicep (R): 3+, Bicep (L): 3+ Babinski Reflex: Right: Absent, Left: Absent - LABS Result Diagrams: 09/20/18 11:42 09/20/18 11:42 - DIAGNOSTIC IMAGING Diagnostic Imaging Results: Final report reviewed - FOLLOW UP Follow Up: She had a scheduled appointment with her Psychiatrist in the next week. - TIME SPENT Time Spent in Discharge (Minutes): 60
== END 2018-09-22 17:30 | disposition home or self-care (01) | DRG 918 ==
LOC: ED 11:18 → MS2 15:39 → UNDOADMOB 15:39 → OBSVTOIN 09-21 16:07 → INTOOBSV 09-21 16:07 → UNDODISIN 09-22 17:30
PROVIDERS: ADMIT Internal Medicine; ATTEND Internal Medicine
DX: T50.991A Poisoning by other drugs, medicaments and biological substances, accidental (unintentional), initial encounter (principal); G25.1 Drug-induced tremor; G25.79 Other drug induced movement disorders; Y92.009 Unspecified place in unspecified non-institutional (private) residence as the place of occurrence of the external cause; S09.90XA Unspecified injury of head, initial encounter; W19.XXXA Unspecified fall, initial encounter; R41.0 Disorientation, unspecified; F10.11 Alcohol abuse, in remission; F14.11 Cocaine abuse, in remission; F03.90 Unspecified dementia, unspecified severity, without behavioral disturbance, psychotic disturbance, mood disturbance, and anxiety; D47.3 Essential (hemorrhagic) thrombocythemia; D75.89 Other specified diseases of blood and blood-forming organs; F32.9 Major depressive disorder, single episode, unspecified; R48.0 Dyslexia and alexia; R91.8 Other nonspecific abnormal finding of lung field; Z66 Do not resuscitate; Z79.899 Other long term (current) drug therapy; Z86.718 Personal history of other venous thrombosis and embolism; Z87.891 Personal history of nicotine dependence
CPT/HCPCS: 36415; 70450; 70553; 71045; 80053; 81001; 82550; 83605; 83690; 83735; 84443; 85025; 93005; 96361; 96374; 96375; 97116; 97161; 97167; 97530; 99284; 99285; A9270; A9585; G0378; J1200; J2060; 81003; 87086

== ENCOUNTER 2018-10-07 12:03 | Emergency (ER) | payer MEDICARE, OTHER ==
--- NOTE | 2018-10-07 13:22 | ED Physician Documentation ---
PD HPI SYNCOPE - Stated complaint Stated Complaint: DIZZY - Chief complaint Chief Complaint: Neuro - History obtained from History obtained from: Patient - History of Present Illness Witnessed: Witnessed (family says she seemed confused and off balance, and has some hand tremoring, similar to symptoms of recent admission. She had been okay for few days once in the hospital and the few days after. Symptoms resuming milder again today. She has been taking regular meds after discharge. Pt and family do not think there was any change in medications at discharge.) Timing - onset: Today, Yesterday (lightheaded and some off balance yesterday, worse today and with hands tremoring too.) Preceding symptoms: Light headed. No: Headache, Dyspnea, Generalized weakness Contributing factors: No: Recent med change, Decreased PO intake Injury occurred: No: Fell, Head injury Similar symptoms before: Diagnosis (possible med effects) Recently seen: Emergency Dept, Admitted Review of Systems Constitutional: denies: Fever, Chills, Myalgias Eyes: denies: Loss of vision Ears: denies: Tinnitus/ringing Nose: denies: Rhinorrhea / runny nose, Congestion Throat: denies: Sore throat Cardiac: denies: Chest pain / pressure, Palpitations Respiratory: denies: Dyspnea, Cough GI: reports: Nausea. denies: Abdominal Pain, Vomiting, Diarrhea : denies: Dysuria, Frequency Skin: denies: Rash Neurologic: reports: Generalized weakness (with both hands tremoring today), Confused. denies: Focal weakness, Numbness, Headache Psychiatric: reports: Depressed. denies: Suicidal Endocrine: denies: Weight loss, Easy bruising / bleeding PD PAST MEDICAL HISTORY - Past Medical History Cardiovascular: Deep vein thrombosis Respiratory: None Neuro: Dementia Endocrine/Autoimmune: None GI: None EMBOSSING TOOLSETTER: None : None HEENT: None Psych: Depression Musculoskeletal: None Derm: None - Past Surgical History Past Surgical History: Yes /EMBOSSING TOOLSETTER: Tubal ligation - Present Medications Home Medications: Ambulatory Orders Medication Instructions Recorded Confirmed Sertraline HCl 200 mg PO DAILY 05/28/15 10/07/18 Bupropion HCl [Bupropion Xl] 150 mg PO DAILY MDD +300 mg total 01/20/17 10/07/18 dose 450 mg Aspirin Chewable [St Gerard 81 mg PO DAILY 09/21/18 10/07/18 Aspirin] Donepezil HCl 10 mg PO DAILY 09/21/18 10/07/18 Memantine HCl 10 mg PO DAILY 09/21/18 10/07/18 Trazodone HCl 50 - 100 mg PO QPM PRN 09/21/18 10/07/18 hydrOXYzine HCl [Hydroxyzine HCl] 5 mg PO DAILY PRN MDD bid 09/21/18 10/07/18 - Allergies Allergies/Adverse Reactions: Allergies Allergy/AdvReac Type Severity Reaction Status Date / Time hydrocodone bitartrate * AdvReac Mild Itching Verified 10/04/18 12:02 [From Vicodin] oxycodone HCl * AdvReac Mild Itching Verified 10/04/18 12:02 [From Percocet] - Social History Does the pt smoke?: No Smoking Status: Never smoker Does the pt drink ETOH?: No Does the pt have substance abuse?: No - Immunizations Immunizations are current?: Yes Immunizations: TDAP >10years/unknown - POLST Patient has POLST: No PD ED PE NORMAL - Vitals Vital signs reviewed: Yes - General General: Alert and oriented X 3, No acute distress, Well developed/nourished - HEENT HEENT: Atraumatic - Neck Neck: Supple, no meningeal sign, No adenopathy, No bruit - Cardiac Cardiac: RRR, No murmur - Respiratory Respiratory: Clear bilaterally - Abdomen Abdomen: Soft, Non tender - Back Back: No CVA TTP - Derm Derm: Normal color, Warm and dry - Extremities Extremities: No tenderness to palpate, Normal ROM s pain, No edema, No calf tenderness / cord - Neuro Neuro: Alert and oriented X 3, stogy roller 2-12 intact, No motor deficit, No sensory deficit, Normal speech Eye Opening: Spontaneous Motor: Obeys Commands Verbal: Oriented GCS Score: 15 Results - Vitals Vitals: Oxygen O2 Source Room air - Labs Labs: Laboratory Tests 10/07/18 13:22 POC Whole Bld Glucose 86 PD MEDICAL DECISION MAKING - ED course Complexity details: reviewed old records, re-evaluated patient (I did not see need for repeated testing, given recent admission. Called her Pharmacy, who is putting her meds into daily packs so to ensure accurate dosing, and will decrease her SSRI dose. ), considered differential (she is having same symptoms as recent admission, with negative brain workup. Presumed meds with possible serotonin syndrome, though hospitalist notes discuss consultation with Neurology and it felt less likely but still possible. Does not look like any change in meds at discharge. Patient says she has continued same meds. ), d/w patient Departure - Departure Disposition: 01 Home, Self Care Clinical Impression: Confusion, Tremor of both hands Condition: Stable Record reviewed to determine appropriate education?: Yes Follow-Up: Chapito Potter DO [Primary Care Provider] - Comments: It sounds like your medications had not changed from the time of the prior admission. I assume the symptoms you are having may be the same problem from before of the medication doses. I would decrease your sertraline from 200 to 100 mg daily. Continue your other medications. Follow-up with your primary care early next week, call for follow- up appointment. Your symptoms seem to improve when a held your medicines in the hospital for couple of days. I presume if we decrease dosing that will help. We want to balance your depression with this though and so do not want to have you stop them in entirely but just decrease the dose a little bit. Discharge Date/Time: 10/07/18 15:24
[2018-10-07 14:16] VITALS: BP 107/70
== END 2018-10-07 15:24 | disposition home or self-care (01) ==
LOC: ED 12:03
DX: R41.0 Disorientation, unspecified (principal); R25.1 Tremor, unspecified
CPT/HCPCS: 93005; 99283; 99284

== ENCOUNTER 2018-12-13 08:00 | Outpatient (CLI) | payer MEDICARE, OTHER ==
[2018-12-14 18:13] LABS: CANDIDA GROUP DNA NEGATIVE (NEGATIVE); CANDIDA KRUSEI DNA NEGATIVE (NEGATIVE); TRICHOMONAS VAGINALIS DNA NEGATIVE (NEGATIVE)
== END 2018-12-13 23:59 | disposition home or self-care (01) ==
LOC: LAB.R 08:00
PROVIDERS: ATTEND Obstetrics & Gynecology
DX: L90.0 Lichen sclerosus et atrophicus (principal)
CPT/HCPCS: 87661; 87801

== ENCOUNTER 2018-12-13 15:31 | Outpatient (CLI) | payer MEDICARE, OTHER ==
[2018-12-13 16:15] LABS: HB2 TOTAL 15.5 g/dL; HEMOGLOBIN A1C 0.5 g/dL; HEMOGLOBIN A1C % 5.1 % (4.6-6.2)
== END 2018-12-13 15:32 | disposition home or self-care (01) ==
LOC: LAB 15:31
PROVIDERS: ATTEND Obstetrics & Gynecology
DX: B37.9 Candidiasis, unspecified (principal)
CPT/HCPCS: 36415; 83036

== ENCOUNTER 2019-04-13 17:20 | Emergency (ER) | payer MEDICARE, OTHER ==
--- NOTE | 2019-04-13 18:17 | XRAY Report ---
Reason: Trauma Procedure Date: 04/13/2019 Accession Number: [id number] / [id number] Procedure: XR - Hand 3 View LT CPT Code: Final Report FULL RESULT: EXAM: LEFT HAND RADIOGRAPHY EXAM DATE: 04/13/2019 06:02 PM. CLINICAL HISTORY: Trauma. COMPARISON: HAND 3 VIEW LT 11/13/2016 1:26 PM. TECHNIQUE: 3 views. FINDINGS: Bones: No acute fractures. Old fracture of the ulnar styloid. Plate and screw fixation of the distal radius is present. Joints: No subluxations. 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 Soft Tissues: Unremarkable. IMPRESSION: No acute fractures. RADIA
[2019-04-13] MEDS ORDERED: ACETAMINOPHEN 325 MG TABLET PO STA (18:43)
--- NOTE | 2019-04-13 18:43 | ED Physician Documentation ---
History of Present Illness - Stated complaint Stated Complaint: FELL OFF LADDER - HIT HEAD AND LT ARM INJ - Chief complaint Chief Complaint: Trauma Hd/Nk - History obtained from History obtained from: Patient, Family - History of Present Illness Timing: Today Pain level max: 5 Pain level now: 4 - Additonal information Additional information: 73-year-old female earlier today was on a stepladder when she slipped fell and hurt her left wrist as well as hit the left side of her head. No loss of consciousness. No vomiting. No headache, does have bruising and swelling to the left side of her head. She stated that her wrist did not hurt initially either, but started to have swelling after the incident and is now having some pain to the left wrist. Has had surgery on the wrist before. Worse with movement and better with rest Review of Systems Constitutional: denies: Fever, Chills Nose: denies: Rhinorrhea / runny nose, Congestion Throat: denies: Sore throat Cardiac: denies: Chest pain / pressure Respiratory: denies: Cough Skin: denies: Rash Musculoskeletal: denies: Neck pain, Back pain Neurologic: denies: Headache PD PAST MEDICAL HISTORY - Past Medical History Past Medical History: Yes Cardiovascular: Deep vein thrombosis Respiratory: None Neuro: Dementia Endocrine/Autoimmune: None GI: None GRAVITY METER OPERATOR: None : None HEENT: None Psych: Depression Musculoskeletal: None Derm: None - Past Surgical History Past Surgical History: Yes /GRAVITY METER OPERATOR: Tubal ligation - Present Medications Home Medications: Ambulatory Orders Medication Instructions Recorded Confirmed Sertraline HCl 200 mg PO DAILY 05/28/15 03/14/19 Bupropion HCl [Bupropion Xl] 150 mg PO DAILY MDD +300 mg total 01/20/17 03/14/19 dose 450 mg Aspirin Chewable [[facility] Gerard 81 mg PO DAILY 09/21/18 03/14/19 Aspirin] Donepezil HCl 10 mg PO DAILY 09/21/18 03/14/19 Memantine HCl 10 mg PO DAILY 09/21/18 03/14/19 Trazodone HCl 50 - 100 mg PO QPM PRN 09/21/18 03/14/19 hydrOXYzine HCL [Hydroxyzine HCl] 5 mg PO DAILY PRN MDD bid 09/21/18 03/14/19 Hydroxyurea [Hydrea] 500 mg PO DAILY 03/15/19 03/15/19 Hydrocodone/Acetaminophen 1 each PO Q6H PRN #3 tablet 04/13/19 [Hydrocodon-Acetaminophen 5-325] - Allergies Allergies/Adverse Reactions: Allergies Allergy/AdvReac Type Severity Reaction Status Date / Time hydrocodone bitartrate * AdvReac Mild Itching Verified 04/13/19 17:49 [From Vicodin] oxycodone HCl * AdvReac Mild Itching Verified 04/13/19 17:49 [From Percocet] - Social History Does the pt smoke?: No Smoking Status: Never smoker Does the pt drink ETOH?: No Does the pt have substance abuse?: No - Immunizations Immunizations are current?: Yes Immunizations: TDAP >10years/unknown - POLST Patient has POLST: No PD ED PE NORMAL - Vitals Vital signs reviewed: Yes - General General: Alert and oriented X 3, No acute distress - HEENT HEENT: PERRL, EOMI, Moist mucous membranes, Other (Tenderness to palpation, mild swelling and ecchymosis to the left temporal area.) - Neck Neck: Supple, no meningeal sign - Cardiac Cardiac: RRR - Respiratory Respiratory: No respiratory distress, Clear bilaterally - Derm Derm: Warm and dry - Extremities Extremities: Other (Tender to palpation over the dorsum of the left wrist. Mild ecchymosis and swelling. Neurovascular intact.) - Neuro Neuro: Alert and oriented X 3, yardage caller 2-12 intact, No motor deficit, No sensory deficit, Normal speech Eye Opening: Spontaneous Motor: Obeys Commands Verbal: Oriented GCS Score: 15 Results - Vitals Vitals: Vital Signs - 24 hr 04/13/19 04/13/19 17:23 20:01 Temperature 36 C L Heart Rate 64 65 Respiratory 16 Rate Blood Pressure 117/75 118/62 O2 Saturation 96 97 Oxygen O2 Source Room air - Rads (name of study) Head CT Radiology: Prelim report reviewed, EMP read contemporaneously, See rad report (No acute abnormality) Cervical spine CT Radiology: Prelim report reviewed, EMP read contemporaneously, See rad report (No acute abnormality) L wrist xray Radiology: Prelim report reviewed, EMP read contemporaneously, See rad report (No acute abnormality) PD MEDICAL DECISION MAKING - ED course Complexity details: reviewed results, re-evaluated patient, considered differential, d/w patient, d/w family ED course: No acute findings on radiographic imaging. Placed in a splint for comfort. Velcro splint applied. We will prescribe a small amount of pain medication for home. Note that the patient is not allergic to hydrocodone, but occasionally it does make her itch. No anaphylaxis. No difficulty breathing. Patient counseled regarding signs and symptoms for which I believe and urgent re- evaluation would be necessary. Patient with good understanding of and agreement to plan and is comfortable going home at this time This document was made in part using voice recognition software. While efforts are made to proofread this document, sound alike and grammatical errors may occur. Departure - Departure Disposition: 01 Home, Self Care Clinical Impression: Left wrist sprain Qualifiers: Encounter type: initial encounter Qualified Code(s): S63.502A - Unspecified sprain of left wrist, initial encounter Head injury, closed Qualifiers: Encounter type: initial encounter Qualified Code(s): S09.90XA - Unspecified injury of head, initial encounter Condition: Good Instructions: ED Head Injury Closed Follow-Up: your,doctor in 1 week [Other] Prescriptions: Hydrocodone/Acetaminophen [Hydrocodon-Acetaminophen 5-325] 1 each PO Q6H PRN #3 tablet PRN Reason: pain Comments: Thankfully your x-rays and CT scans do not show any acute abnormalities today. Wear the splint for comfort for the next week. You may use Motrin or Tylenol as needed for pain at home. Return if you worsen. Discharge Date/Time: 04/13/19 20:01
--- NOTE | 2019-04-13 19:22 | CT Report ---
Reason: fall, head injury Procedure Date: 04/13/2019 Accession Number: [id number] / [id number] Procedure: CT - HEAD WO CPT Code: Final Report FULL RESULT: EXAM: CT HEAD EXAM DATE: 04/13/2019 07:03 PM. CLINICAL HISTORY: Fall, head injury. Ground-level fall. Hematoma to left side of orbit. COMPARISON: HEAD W/O 09/20/2018 12:44 PM. TECHNIQUE: Multiaxial CT images were obtained from the foramen magnum to the vertex. Reformats: Sagittal and coronal. IV contrast: None. In accordance with CT protocol optimization, one or more of the following dose reduction techniques were utilized for this exam: automated exposure control, adjustment of mA and/or KV based on patient size, or use of iterative reconstructive technique. FINDINGS: Parenchyma: No evidence of an acute vascular insult or acute parenchymal hemorrhage. Mild periventricular regions of low attenuation. No midline shift. No mass-effect. Extraaxial Spaces: Extra-axial spaces are mildly prominent. No subdural or epidural collections identified. Ventricles: Normal in size and position. Sinuses and Orbits: Imaged paranasal sinuses, orbits, and mastoids show no significant abnormality. Bones: No evidence of fracture or calvarial defect. Other: Changes are seen from bilateral lens surgery. Left lateral periorbital soft tissue edema and hematoma. IMPRESSION: 1. No acute intracranial abnormality is identified. 2. No acute fracture. 3. Left lateral periorbital soft tissue edema and hematoma. RADIA
--- NOTE | 2019-04-13 19:30 | CT Report ---
Reason: fall, head/neck injury Procedure Date: 04/13/2019 Accession Number: [id number] / [id number] Procedure: CT - CERVICAL SPINE WO CPT Code: Final Report FULL RESULT: EXAM: CT CERVICAL SPINE WITHOUT CONTRAST DATE: 04/13/2019 07:03 PM. HISTORY: Fall, head/neck injury. COMPARISONS: HEAD W/O 09/20/2018 12:44 PM. TECHNIQUE: Thin-section axial images were acquired of the cervical spine without contrast. Post-processing: Coronal and sagittal reformats. Other: None. In accordance with CT protocol optimization, one or more of the following dose reduction techniques were utilized for this exam: automated exposure control, adjustment of mA and/or KV based on patient size, or use of iterative reconstructive technique. FINDINGS: Alignment: No scoliosis or spondylolisthesis. Bones: No fracture or bone lesion. Interspace Levels/Facets: C1-C2: Unremarkable. C2-C3: Unremarkable. C3-C4: Moderate degenerative disk disease. C4-C5: Moderate degenerative disk disease. C5-C6: Moderate degenerative disk disease. C6-C7: Mild degenerative disk disease. C7-T1: Unremarkable. Musculature: Normal. No fatty atrophy. Other: The paravertebral and prevertebral soft tissues are unremarkable. The lung apices are clear. Fluid attenuating rounded structure just deep to the skin surface along the upper right back measuring up to 2.2 cm thought likely to represent a sebaceous cyst. IMPRESSION: 1. No acute cervical spine fracture or listhesis. 2. Multilevel degenerative changes, as above. RADIA
[2019-04-13] MEDS ORDERED: HYDROcod/ACETAM 5/325 MG TABLET PO STA (19:42)
[2019-04-13 20:04] VITALS: BP 118/62
== END 2019-04-13 20:01 | disposition home or self-care (01) ==
LOC: ED 17:20
DX: S63.502A Unspecified sprain of left wrist, initial encounter (principal); S09.90XA Unspecified injury of head, initial encounter; S00.83XA Contusion of other part of head, initial encounter; W11.XXXA Fall on and from ladder, initial encounter; F03.90 Unspecified dementia, unspecified severity, without behavioral disturbance, psychotic disturbance, mood disturbance, and anxiety
CPT/HCPCS: 70450; 72125; 73130; 99284; A9270

== ENCOUNTER 2020-03-25 06:59 | Outpatient (CLI) | payer MEDICARE, OTHER | END 2020-03-25 07:00 | disposition EMS.NT | LOC: EMS 06:59 | PROVIDERS: ATTEND Surgery | DX: Z03.89 Encounter for observation for other suspected diseases and conditions ruled out (principal) ==

== ENCOUNTER 2020-04-19 14:05 | Outpatient (CLI) | payer MEDICARE, OTHER ==
--- NOTE | 2020-04-19 16:40 | DEXA Report ---
PROCEDURE: Dexa Spine and/or Hip INDICATIONS: POST MENOPAUSAL TECHNIQUE: Dual energy x-ray absorptiometry (DXA) was performed on a VtagO System. Regions measur ed are the AP Spine, femoral neck, and if needed forearm. COMPARISON: 02/01/2018. FINDINGS: Lumbar Spine: Bone Mineral Density 0.99 g/cm/cm,T score -1.6, osteopenia Left Hip: Bone Mineral Density 0.794 g/cm/cm,T score -1.7, osteopenia Left Femoral Neck: Bone Mineral Density 0.816 g/cm/cm, T score -1.6, osteopenia (T score greater or equal to -1.0: NORMAL) (T score from -1.1 to -2.4: OSTEOPENIA) (T score less than or equal to -2.5 to: OSTEOPOROSIS) Impression: Osteopenia. Bone mineral density has decreased approximately 3.5% and the interval since prior exam obtained 02/01/2018. Patients with diagnosis of osteoporosis or osteopenia should have regular bone mineral density assess ment. For those eligible for Medicare, routine testing is allowed once every 2 years. Testing frequ ency can be increased for patients who have rapidly progressing disease or for those who are receivin g medical therapy to restore bone mass. Reviewed by: Rita Sim MD, PhD on 04/19/2020 4:38 PM PST Approved by: Rita Smi MD, PhD on 04/19/2020 4:38 PM PST Station ID: [id number]
== END 2020-04-19 14:06 | disposition home or self-care (01) ==
LOC: DI 14:05
PROVIDERS: ATTEND Family Medicine
DX: Z13.820 Encounter for screening for osteoporosis (principal); N95.8 Other specified menopausal and perimenopausal disorders; M85.88 Other specified disorders of bone density and structure, other site

== ENCOUNTER 2021-03-02 21:01 | Outpatient (CLI) | payer MEDICARE, OTHER | END 2021-03-02 21:02 | disposition EMS.NT | LOC: EMS 21:01 | DX: F32.A Depression, unspecified (principal) ==

== ENCOUNTER 2021-03-20 11:22 | Emergency (ER) | payer MEDICARE, OTHER ==
--- NOTE | 2021-03-20 12:11 | ED Physician Documentation ---
PD HPI ALTERED MENTAL STATUS - Stated complaint Stated Complaint: ANXIOUS - Chief complaint Chief Complaint: MHE - History obtained from History obtained from: Patient - History of Present Illness Timing - onset: Today (Patient woke up feeling somewhat confused and anxious this morning. She is concerned that her son had surreptitiously given her some drugs or a undesired medication. She is feeling well otherwise.) Timing - duration: Hours Timing - details: Abrupt onset, Now resolved (thinking clearer but still feeling anxious.) Quality / character: Confused Associated symptoms: No: Fever, Headache, Dyspnea, Cough, NVD Contributing factors: No: Diabetic, COPD, New medication, Recent illness, Intoxicated, Substance abuse Basline status: Alert and oriented X 3, Ambulatory Similar symptoms before: No diagnosis (She states she had a similar episode for several hours a week or 2 ago after her son gave her something to drink while she was doing some housework. She is concerned he may be giving her unusual medications at times.) Review of Systems Constitutional: denies: Fever, Chills Nose: denies: Rhinorrhea / runny nose, Congestion Throat: denies: Sore throat Respiratory: denies: Cough GI: denies: Vomiting, Diarrhea : denies: Dysuria Neurologic: denies: Focal weakness, Near syncope, Headache, Head injury PD PAST MEDICAL HISTORY - Past Medical History Cardiovascular: Deep vein thrombosis Respiratory: None Neuro: Dementia Endocrine/Autoimmune: None GI: None SPARE PERSON: None : None HEENT: None Psych: Depression Musculoskeletal: None Derm: None - Past Surgical History Past Surgical History: Yes /SPARE PERSON: Tubal ligation - Present Medications Home Medications: Ambulatory Orders Medication Instructions Recorded Confirmed Sertraline HCl 200 mg PO DAILY 05/28/15 03/14/19 buPROPion HCL [Bupropion Xl] 150 mg PO DAILY MDD +300 mg total 01/20/17 03/14/19 dose 450 mg Aspirin Chewable [[facility] Gerard 81 mg PO DAILY 09/21/18 03/14/19 Aspirin] Donepezil HCl 10 mg PO DAILY 09/21/18 03/14/19 Memantine HCl 10 mg PO DAILY 09/21/18 03/14/19 Trazodone HCl 50 - 100 mg PO QPM PRN 09/21/18 03/14/19 hydrOXYzine HCL [Hydroxyzine HCl] 5 mg PO DAILY PRN MDD bid 09/21/18 03/14/19 Hydroxyurea [Hydrea] 500 mg PO DAILY 03/15/19 03/15/19 Hydrocodone/Acetaminophen 1 each PO Q6H PRN #3 tablet 04/13/19 [Hydrocodon-Acetaminophen 5-325] - Allergies Allergies/Adverse Reactions: Allergies Allergy/AdvReac Type Severity Reaction Status Date / Time hydrocodone bitartrate * AdvReac Mild Itching Verified 03/20/21 11:43 [From Vicodin] oxycodone HCl * AdvReac Mild Itching Verified 03/20/21 11:43 [From Percocet] - Social History Does the pt smoke?: No Smoking Status: Never smoker Does the pt drink ETOH?: No Does the pt have substance abuse?: No - Immunizations Immunizations are current?: Yes Immunizations: TDAP >10years/unknown - POLST Patient has POLST: No PD ED PE NORMAL - Vitals Vital signs reviewed: Yes - General General: Alert and oriented X 3, No acute distress, Well developed/nourished - HEENT HEENT: Moist mucous membranes, Pharynx benign - Neck Neck: Supple, no meningeal sign, No adenopathy - Cardiac Cardiac: RRR, No murmur - Respiratory Respiratory: Clear bilaterally - Abdomen Abdomen: Soft, Non tender - Derm Derm: Normal color, Warm and dry - Neuro Neuro: Alert and oriented X 3, quality control analyst 2-12 intact, No motor deficit, No sensory deficit, Normal speech Eye Opening: Spontaneous Motor: Obeys Commands Verbal: Oriented GCS Score: 15 - Psych Psych: No: Normal affect (anxious but still pleasant. ) Results - Vitals Vitals: Vital Signs - 24 hr 03/20/21 11:27 Temperature 36.5 C Heart Rate 62 Respiratory 19 Rate Blood Pressure 131/62 H O2 Saturation 99 Oxygen O2 Source Room air - EKG (time done) 13:14 Rate: Rate (enter#) (60) Rhythm: NSR [place]: Normal Intervals: Normal [place] QRS: Normal Ischemia: Normal ST segments. No: ST elevation c/w ischemia, ST depression Compare to prior EKG: Old EKG unavailable - Labs Labs: Laboratory Tests 03/20/21 03/20/21 03/20/21 12:52 12:52 12:52 WBC 7.1 RBC 5.41 H Hgb 14.8 Hct 46.6 MCV 86.1 MCH 27.4 MCHC 31.8 L RDW 15.0 Plt Count 698 H MPV 9.0 Neut # (Auto) 5.6 Lymph # (Auto) 0.8 L Whitman # (Auto) 0.5 Eos # (Auto) 0.1 Baso # (Auto) 0.1 Absolute Nucleated RBC 0.00 Nucleated RBC % 0.0 Sodium 141 Potassium 3.9 Chloride 104 Carbon Dioxide 26 Anion Gap 11.0 BUN 16 Creatinine 1.0 Estimated GFR (MDRD) 54 L Glucose 98 Calcium 8.9 Total Bilirubin 0.5 AST 21 ALT 21 Alkaline Phosphatase 58 Total Protein 7.3 Albumin 4.5 Globulin 2.8 Albumin/Globulin Ratio 1.6 Lipase 44 TSH 1.12 Urine Color Urine Clarity Urine pH Ur Specific [place] Urine Protein Urine Glucose (UA) Urine Ketones Urine Occult Blood Urine Nitrite Urine Bilirubin Urine Urobilinogen Ur Leukocyte Esterase Urine RBC Urine WBC Ur Squamous Epith Cells Urine Bacteria Ur Microscopic Review Urine Culture Comments Salicylates < 6.0 Urine Opiates Screen Ur Oxycodone Screen Urine Methadone Screen Ur Propoxyphene Screen Acetaminophen < 10 L Ur Barbiturates Screen Ur Tricyclics Screen Ur Phencyclidine Scrn Ur Amphetamine Screen U Methamphetamines Scrn U Benzodiazepines Scrn Urine Cocaine Screen U Cannabinoids Screen Ethyl Alcohol < 5.0 03/20/21 12:55 WBC RBC Hgb Hct MCV MCH MCHC RDW Plt Count MPV Neut # (Auto) Lymph # (Auto) Whitman # (Auto) Eos # (Auto) Baso # (Auto) Absolute Nucleated RBC Nucleated RBC % Sodium Potassium Chloride Carbon Dioxide Anion Gap BUN Creatinine Estimated GFR (MDRD) Glucose Calcium Total Bilirubin AST ALT Alkaline Phosphatase Total Protein Albumin Globulin Albumin/Globulin Ratio Lipase TSH Urine Color YELLOW Urine Clarity CLEAR Urine pH 6.0 Ur Specific [place] 1.010 Urine Protein NEGATIVE Urine Glucose (UA) NEGATIVE Urine Ketones NEGATIVE Urine Occult Blood NEGATIVE Urine Nitrite NEGATIVE Urine Bilirubin NEGATIVE Urine Urobilinogen 0.2 (NORMAL) Ur Leukocyte Esterase TRACE H Urine RBC None Seen Urine WBC 0-3 Ur Squamous Epith Cells FEW Squamous Urine Bacteria Few Ur Microscopic Review INDICATED Urine Culture Comments INDICATED Salicylates Urine Opiates Screen NEGATIVE Ur Oxycodone Screen NEGATIVE Urine Methadone Screen NEGATIVE Ur Propoxyphene Screen NEGATIVE Acetaminophen Ur Barbiturates Screen NEGATIVE Ur Tricyclics Screen NEGATIVE Ur Phencyclidine Scrn NEGATIVE Ur Amphetamine Screen NEGATIVE U Methamphetamines Scrn NEGATIVE U Benzodiazepines Scrn NEGATIVE Urine Cocaine Screen NEGATIVE U Cannabinoids Screen NEGATIVE Ethyl Alcohol - Rads (name of study) head CT Radiology: Prelim report reviewed (no acute intracranial abonrmality. ), See rad report PD MEDICAL DECISION MAKING - ED course Complexity details: reviewed results, considered differential, d/w patient, d/w financial consultant ([employer], who talked with sister and family and this seems occasional for patient. She had had Hydroxyzine for anxiety PRN but had tossed them away recently. Sister told SW that she had ogtten refill for patient just today. Patient wants to go back home. Family okay with that. Brother will p/u.) Departure - Departure Disposition: 01 Home, Self Care Clinical Impression: Anxiety Condition: Stable Record reviewed to determine appropriate education?: Yes Instructions: ED Stress React Follow-Up: Chapito Potter DO [Primary Care Provider] - Comments: Your urine test does not show any obvious drugs of abuse in there. The test does not obviously test for every potential medication. Your basic blood tests appear normal as well with no abnormality of your blood sugar or electrolytes or kidney function. At this point I would just suggest staying well-hydrated and continue usual medications. The social media senior associate tells me her sister had already picked up a refill of your medication for anxiety. Continue those as needed. Follow-up with your psychiatrist next week as planned. Return if needed.
[2021-03-20 13:00] LABS: BASOPHILS # (AUTO) 0.1 10^3/uL (0.0-0.1); BASOPHILS % (AUTO) 0.9 %; EOSINOPHILS # (AUTO) 0.1 10^3/uL (0.0-0.7); EOSINOPHILS % (AUTO) 1.6 %; HCT - HEMATOCRIT 46.6 % (37.0-47.0); HGB - HEMOGLOBIN 14.8 g/dL (12.0-16.0); LYMPHOCYTES # (AUTO) 0.8 10^3/uL (1.5-3.5); LYMPHOCYTES % (AUTO) 11.2 %; MEAN CORPUSCULAR HEMOGLOBIN 27.4 pg (27.0-31.0); MEAN CORPUSCULAR HGB CONC 31.8 g/dL (32.0-36.0); MEAN CORPUSCULAR VOLUME 86.1 fL (81.0-99.0); MONOCYTES # (AUTO) 0.5 10^3/uL (0.0-1.0); MONOCYTES % (AUTO) 6.7 %; NEUTROPHILS # (AUTO) 5.6 10^3/uL (1.5-6.6); NEUTROPHILS % (AUTO) 79.3 %; PLT - PLATELET COUNT 698 10^3/uL (130-450); RED BLOOD COUNT 5.41 10^6/uL (4.20-5.40); WHITE BLOOD COUNT 7.1 x10^3/uL (4.8-10.8)
[2021-03-20 13:02] LABS: MUDS CUTOFF CONCENTRATIONS CUTOFF CONC BELOW:
[2021-03-20 13:08] LABS: BILIRUBIN,URINE NEGATIVE (NEGATIVE); GLUCOSE, URINE (UA) NEGATIVE (NEGATIVE); KETONES,URINE (UA) NEGATIVE (NEGATIVE); LEUKOCYTE ESTERASE, URINE TRACE (NEGATIVE); NITRITE,URINE NEGATIVE (NEGATIVE); OCCULT BLOOD,URINE NEGATIVE (NEGATIVE); PROTEIN,URINE NEGATIVE (NEGATIVE); UROBILINOGEN,URINE 0.2 (NORMAL) E.U./dL (NORMAL)
[2021-03-20 13:13] LABS: CLARITY,URINE CLEAR (CLEAR)
--- NOTE | 2021-03-20 13:14 | CT Report ---
PROCEDURE: HEAD WO INDICATIONS: Confusion TECHNIQUE: Noncontrast 4.5 mm thick angled axial sections acquired from the foramen magnum to the vertex. For r adiation dose reduction, the following was used: automated exposure control, adjustment of mA and/or kV according to patient size. COMPARISON: None FINDINGS: Image quality: Excellent. CSF spaces: Basal cisterns are patent. No extra-axial fluid collections. Ventricles are normal in size and shape. Brain: No midline shift. No intracranial masses or hemorrhage. Stanley-white matter interface is norm al. Skull and face: Calvarium and visualized facial bones are intact, without suspicious lesions. Sinuses: Visualized sinuses and mastoids are clear. IMPRESSION: No acute intracranial finding. Reviewed by: Richard George MD on 03/20/2021 1:12 PM [facility] Approved by: Richard George MD on 03/20/2021 1:12 PM [facility] Station ID: [id number]
[2021-03-20 13:17] LABS: AMPHETAMINE SCREEN,URINE NEGATIVE (NEGATIVE); BARBITURATE SCREEN,UR NEGATIVE (NEGATIVE); BENZODIAZEPINES SCREEN, URINE NEGATIVE (NEGATIVE); COCAINE SCREEN URINE NEGATIVE (NEGATIVE); METHADONE SCREEN, URINE NEGATIVE (NEGATIVE); METHAMPHETAMINES SCREEN, URINE NEGATIVE (NEGATIVE); OPIATE SCREEN, URINE NEGATIVE (NEGATIVE); OXYCODONE SCREEN, URINE NEGATIVE (NEGATIVE); PROPOXYPHENE SCREEN, URINE NEGATIVE (NEGATIVE); THC CANNABINOID SCREEN, URINE NEGATIVE (NEGATIVE); TRICYCLIC ANTIDEPRESSANT,URINE NEGATIVE (NEGATIVE)
[2021-03-20 13:17] LABS: ACETAMINOPHEN < 10 ug/mL (10-30); ALBUMIN 4.5 g/dL (3.2-5.5); ALBUMIN/GLOBULIN RATIO 1.6 (1.0-2.2); ALKALINE PHOSPHATASE 58 IU/L (42-121); ALT ALANINE AMINOTRANSFERASE 21 IU/L (10-60); AST ASPARTATE AMINOTRANSFERASE 21 IU/L (10-42); BILIRUBIN,TOTAL 0.5 mg/dL (0.2-1.0); BUN - BLOOD UREA NITROGEN 16 mg/dL (6-20); CALCIUM 8.9 mg/dL (8.5-10.3); CARBON DIOXIDE - CO2 26 mmol/L (21-32); CHLORIDE 104 mmol/L (101-111); ETOH - ETHANOL < 5.0 mg/dL; GFR - MDRD 54 (>89); GLUCOSE 98 mg/dL (70-100); LIPASE 44 U/L (22-51); POTASSIUM 3.9 mmol/L (3.5-5.0); SALICYLATE < 6.0 mg/dL; SODIUM 141 mmol/L (135-145); TOTAL PROTEIN 7.3 g/dL (6.7-8.2)
[2021-03-20 13:21] LABS: BACTERIA,URINE Few /HPF (None Seen); RBC,URINE None Seen /HPF (0-5); SQUAMOUS EPITHELIAL CELL,UR FEW Squamous (<= Few); WBC,URINE 0-3 /HPF (0-5)
[2021-03-20] MEDS: hydrOXYzine PAMOATE 25 MG CAPSULE PO STA (14:25)
[2021-03-20 16:28] VITALS: BP 119/88
== END 2021-03-20 16:52 | disposition home or self-care (01) ==
LOC: ED 11:22
DX: F41.9 Anxiety disorder, unspecified (principal)
CPT/HCPCS: 36415; 70450; 80053; 80306; 80307; 81001; 83690; 84443; 85025; 87086; 93005; 99284; A9270; G0480; 80320; 80329; 81003

== ENCOUNTER 2021-05-10 13:44 | Emergency (ER) | payer MEDICARE, OTHER ==
--- OUTSIDE RECORDS SUMMARY | 2021-05-10 13:52 | EXTERNAL MEDICAL SUMMARY RPT | Continuity of Care Document ---
:1945 Author Organization [facility] Address [address] [place] [address] Phone Care Team Providers Name Role Phone Antonio Unavailable Unavailable Hammer Unavailable Unavailable Allergies No information. Encounters No information. Medications date description facility 20210422 Hydroxyzine Hydrochloride 10 MG Oral [facility] 20210422 Hydroxyzine Hydrochloride 10 MG Oral [facility] 20210422 24 HR Bupropion Hydrochloride 300 MG Ex [facility] Tablet 20210422 24 HR Bupropion Hydrochloride 150 MG [facility] Tablet 20210422 Trazodone Hydrochloride 50 MG Oral [facility] 20210422 Sertraline 100 MG Oral [facility] 20210422 lamotrigine 100 MG Oral [facility] 20210324 Hydroxyzine Hydrochloride 10 MG Oral [facility] 20210324 24 HR Bupropion Hydrochloride 150 MG Ex [facility] Tablet 20210324 Trazodone Hydrochloride 50 MG Oral [facility] 20210324 Hydroxyzine Hydrochloride 10 MG Oral [facility] 20210324 24 HR Bupropion Hydrochloride 150 MG Ex [facility] Tablet 20210324 Trazodone Hydrochloride 50 MG Oral [facility] 20210318 Hydroxyzine Hydrochloride 10 MG Oral [facility] 20210318 Hydroxyzine Hydrochloride 10 MG Oral [facility] Problems Procedures date description facility [id number] [facility] [id number] [facility] [id number] [facility] [id number] [facility] [id number] [facility] [id number] [facility] [id number] [facility] [id number] [facility] [id number] [facility] [id number] [facility] [id number] [facility] [id number] [facility] [id number] [facility] Results No information. Vital Signs date measurement value source 20210324 weight_standard 134 lb 20210324 weight_metric 60.78 kg 20210324 temperature_standard 97.4 F 20210324 temperature_metric 36.33 C 20210324 height_standard 62.5 in 20210324 height_metric 158.75 cm 20210324 heart_rate 68 /min 20210324 BP_systolic 105 mm[Hg] 20210324 BP_diastolic 80 mm[Hg] 20210324 BMI 24.1 kg/m2 20210324 weight_standard 134 lb 20210324 weight_metric 60.78 kg 20210324 temperature_standard 97.4 F 20210324 temperature_metric 36.33 C 20210324 height_standard 62.5 in 20210324 height_metric 158.75 cm 20210324 heart_rate 68 /min 20210324 BP_systolic 105 mm[Hg] 20210324 BP_diastolic 80 mm[Hg] 20210324 BMI 24.1 kg/m2 20210422 weight_standard 61.24 lb 20210422 weight_metric 27.78 kg 20210422 temperature_standard 97.6 F 20210422 temperature_metric 36.44 C 20210422 heart_rate 63 /min 20210422 BP_systolic 127 mm[Hg] 20210422 BP_diastolic 58 mm[Hg] 20210422 weight_standard 61.24 lb 20210422 weight_metric 27.78 kg 20210422 temperature_standard 97.6 F 20210422 temperature_metric 36.44 C 20210422 heart_rate 63 /min 20210422 BP_systolic 127 mm[Hg] 20210422 BP_diastolic 58 mm[Hg]
[2021-05-10 13:58] VITALS: BP 119/89
[2021-05-10] MEDS ORDERED: LORazepam 0.5 MG TABLET PO STA (14:01)
--- NOTE | 2021-05-10 14:03 | ED Physician Documentation ---
History of Present Illness - Stated complaint Stated Complaint: UNSTABLE - Chief complaint Chief Complaint: General - History obtained from History obtained from: Patient - Additonal information Additional information: 76-year-old woman states that she feels shaky and wobbly today. She is quite anxious and wonder if she overtook her medications. She does not know what medications she takes, I cannot confirm anything other than were taking medications for depression. States that although she is felt wobbly and thought it was Wednesday and that is why she thinks she overtook her medications. Review of Systems Constitutional: reports: Reviewed and negative Eyes: reports: Reviewed and negative Throat: reports: Reviewed and negative Cardiac: reports: Reviewed and negative Respiratory: reports: Reviewed and negative PD PAST MEDICAL HISTORY - Past Medical History Cardiovascular: Deep vein thrombosis Respiratory: None Neuro: Dementia Endocrine/Autoimmune: None GI: None TIME CHECKER: None : None HEENT: None Psych: Depression Musculoskeletal: None Derm: None - Past Surgical History Past Surgical History: Yes /TIME CHECKER: Tubal ligation - Present Medications Home Medications: Ambulatory Orders Medication Instructions Recorded Confirmed Sertraline HCl 200 mg PO DAILY 05/28/15 03/14/19 buPROPion HCL [Bupropion Xl] 150 mg PO DAILY MDD +300 mg total 01/20/17 03/14/19 dose 450 mg Aspirin Chewable [[facility] [place] 81 mg PO DAILY 09/21/18 03/14/19 Aspirin] Donepezil HCl 10 mg PO DAILY 09/21/18 03/14/19 Memantine HCl 10 mg PO DAILY 09/21/18 03/14/19 Trazodone HCl 50 - 100 mg PO QPM PRN 09/21/18 03/14/19 hydrOXYzine HCL [Hydroxyzine HCl] 5 mg PO DAILY PRN MDD bid 09/21/18 03/14/19 Hydroxyurea [Hydrea] 500 mg PO DAILY 03/15/19 03/15/19 Hydrocodone/Acetaminophen 1 each PO Q6H PRN #3 tablet 04/13/19 [Hydrocodon-Acetaminophen 5-325] - Allergies Allergies/Adverse Reactions: Allergies Allergy/AdvReac Type Severity Reaction Status Date / Time hydrocodone bitartrate * AdvReac Mild Itching Verified 03/20/21 11:43 [From Vicodin] oxycodone HCl * AdvReac Mild Itching Verified 03/20/21 11:43 [From Percocet] - Social History Does the pt smoke?: No Smoking Status: Never smoker Does the pt drink ETOH?: No Does the pt have substance abuse?: No - Immunizations Immunizations are current?: Yes Immunizations: TDAP >10years/unknown - POLST Patient has POLST: No PD ED PE NORMAL - Vitals Vital signs reviewed: Yes - General General: Other (A/O x2) - HEENT HEENT: PERRL, EOMI - Neck Neck: Supple, no meningeal sign, No bony TTP - Cardiac Cardiac: RRR, No murmur - Respiratory Respiratory: No respiratory distress, Clear bilaterally - Abdomen Abdomen: Normal bowel sounds, Soft, Non tender - Back Back: No CVA TTP, No spinal TTP - Derm Derm: Normal color, Warm and dry - Neuro Neuro: Other (She seems to have a volitional tremor that is much worse when she looks at her hands. It seems relatively mild when she is not focusing on it.) Eye Opening: Spontaneous Motor: Obeys Commands Results - Vitals Vitals: Vital Signs - 24 hr 05/10/21 13:49 Temperature 36.9 C Heart Rate 81 Respiratory 20 Rate Blood Pressure 119/89 H O2 Saturation 96 Oxygen O2 Source Room air - Labs Labs: Laboratory Tests 05/10/21 05/10/21 05/10/21 13:53 14:26 14:26 WBC 7.1 RBC 4.94 Hgb 13.4 Hct 41.8 MCV 84.6 MCH 27.1 MCHC 32.1 RDW 16.1 H Plt Count 490 H MPV 8.7 Neut # (Auto) 5.7 Lymph # (Auto) 0.8 L [place] # (Auto) 0.4 Eos # (Auto) 0.1 Baso # (Auto) 0.1 Absolute Nucleated RBC 0.00 Nucleated RBC % 0.0 Sodium 138 Potassium 4.4 Chloride 102 Carbon Dioxide 26 Anion Gap 10.0 BUN 15 Creatinine 1.1 H Estimated GFR (MDRD) 48 L Glucose 91 POC Whole Bld Glucose 102 H Calcium 9.1 Total Bilirubin 0.7 AST 18 ALT 15 Alkaline Phosphatase 54 Total Protein 6.6 L Albumin 4.0 Globulin 2.6 Albumin/Globulin Ratio 1.5 Lipase 29 TSH Salicylates < 6.0 Acetaminophen < 10 L Ethyl Alcohol 5.2 05/10/21 14:26 WBC RBC Hgb Hct MCV MCH MCHC RDW Plt Count MPV Neut # (Auto) Lymph # (Auto) [place] # (Auto) Eos # (Auto) Baso # (Auto) Absolute Nucleated RBC Nucleated RBC % Sodium Potassium Chloride Carbon Dioxide Anion Gap BUN Creatinine Estimated GFR (MDRD) Glucose POC Whole Bld Glucose Calcium Total Bilirubin AST ALT Alkaline Phosphatase Total Protein Albumin Globulin Albumin/Globulin Ratio Lipase TSH 1.56 Salicylates Acetaminophen Ethyl Alcohol PD MEDICAL DECISION MAKING - ED course ED course: 76-year-old woman reportedly with dementia, per social work had a Mini-Mental status exam administered by her psychiatrist recently with a score of 13 out of 30. She lives alone and does have supportive family members though. She administers her own medications. She may have over taken her medications today. She was observed for a time and despite anxiety was not found to have any other ill effects. Lab work looked good. She was unable to produce urine sample here. Seen extensively by high school social studies tutor also coordinated with the family and discussed options and they are considering respite care, perhaps as a bridge to permanent assisted living. Departure - Departure Disposition: 01 Home, Self Care Clinical Impression: Accidental drug overdose, Anxiety, Dementia Condition: Good Record reviewed to determine appropriate education?: Yes Instructions: ED Dementia Caregiver Support, ED Overdose Accidental Comments: You were seen today because you felt bad after potentially overtaking her medications and you were very anxious. Your labs look fine. We had to talk to the high school social studies tutor, and use the attached resources for consideration for respite care as you may be approaching the point where you can no longer manage your own medications and affairs at home alone. Until then stay with reliable adult. Return for new or worsening symptoms and follow-up with your primary care physician, next available appointment.
[2021-05-10 14:33] LABS: BASOPHILS # (AUTO) 0.1 10^3/uL (0.0-0.1); BASOPHILS % (AUTO) 0.8 %; EOSINOPHILS # (AUTO) 0.1 10^3/uL (0.0-0.7); EOSINOPHILS % (AUTO) 1.6 %; HCT - HEMATOCRIT 41.8 % (37.0-47.0); HGB - HEMOGLOBIN 13.4 g/dL (12.0-16.0); LYMPHOCYTES # (AUTO) 0.8 10^3/uL (1.5-3.5); MEAN CORPUSCULAR HEMOGLOBIN 27.1 pg (27.0-31.0); MEAN CORPUSCULAR HGB CONC 32.1 g/dL (32.0-36.0); MEAN CORPUSCULAR VOLUME 84.6 fL (81.0-99.0); MEAN PLATELET VOLUME 8.7 fL (7.9-10.8); MONOCYTES # (AUTO) 0.4 10^3/uL (0.0-1.0); MONOCYTES % (AUTO) 6.1 %; NEUTROPHILS # (AUTO) 5.7 10^3/uL (1.5-6.6); NEUTROPHILS % (AUTO) 80.1 %; PLT - PLATELET COUNT 490 10^3/uL (130-450); RED BLOOD COUNT 4.94 10^6/uL (4.20-5.40); RED CELL DISTRIBUTION WIDTH 16.1 % (12.0-15.0); WHITE BLOOD COUNT 7.1 x10^3/uL (4.8-10.8)
[2021-05-10 14:47] LABS: ACETAMINOPHEN < 10 ug/mL (10-30); ALBUMIN/GLOBULIN RATIO 1.5 (1.0-2.2); ALKALINE PHOSPHATASE 54 IU/L (42-121); ALT ALANINE AMINOTRANSFERASE 15 IU/L (10-60); AST ASPARTATE AMINOTRANSFERASE 18 IU/L (10-42); BILIRUBIN,TOTAL 0.7 mg/dL (0.2-1.0); BUN - BLOOD UREA NITROGEN 15 mg/dL (6-20); CALCIUM 9.1 mg/dL (8.5-10.3); CARBON DIOXIDE - CO2 26 mmol/L (21-32); CHLORIDE 102 mmol/L (101-111); CREATININE 1.1 mg/dL (0.4-1.0); ETOH - ETHANOL 5.2 mg/dL; GFR - MDRD 48 (>89); GLUCOSE 91 mg/dL (70-100); LIPASE 29 U/L (22-51); POTASSIUM 4.4 mmol/L (3.5-5.0); SALICYLATE < 6.0 mg/dL; SODIUM 138 mmol/L (135-145); TOTAL PROTEIN 6.6 g/dL (6.7-8.2)
== END 2021-05-10 15:38 | disposition home or self-care (01) ==
LOC: ED 13:44
DX: T65.91XA Toxic effect of unspecified substance, accidental (unintentional), initial encounter (principal); F41.9 Anxiety disorder, unspecified; R25.1 Tremor, unspecified; F03.90 Unspecified dementia, unspecified severity, without behavioral disturbance, psychotic disturbance, mood disturbance, and anxiety
CPT/HCPCS: 36415; 80053; 80307; 83690; 84443; 85025; 99282; 99283; A9270; G0480; 80320; 80329

== ENCOUNTER 2021-06-05 14:51 | Outpatient (CLI) | payer MEDICARE, OTHER | END 2021-06-05 14:52 | disposition critical access hospital (66) | LOC: EMS 14:51 | DX: T50.902A Poisoning by unspecified drugs, medicaments and biological substances, intentional self-harm, initial encounter (principal); R41.82 Altered mental status, unspecified; R47.81 Slurred speech; R11.10 Vomiting, unspecified; R27.0 Ataxia, unspecified; R45.1 Restlessness and agitation | CPT/HCPCS: A0425; A0429 ==

== ENCOUNTER 2021-06-05 15:06 | Emergency (ER) | payer MEDICARE, OTHER ==
--- NOTE | 2021-06-05 15:17 | ED Physician Documentation ---
History of Present Illness - Stated complaint Stated Complaint: OD/AMS - History obtained from History obtained from: Patient, EMS - Additonal information Additional information: 76-year-old with dementia, last known normal at 2 AM as that is when she spoke with her brother. Sometime during the day, not known when she states she took all of her meds. She does not know what meds. This was in a suicide attempt. According to her prior med list she takes sertraline, bupropion, aspirin, donepezil, memantine, trazodone, hydroxyzine. She feels nauseous and is mildly altered. There is potential trauma as she was found on the ground next to her toilet. No obvious signs of trauma though. Review of Systems Unable to obtain: Confused PD PAST MEDICAL HISTORY - Past Medical History Cardiovascular: Deep vein thrombosis Respiratory: None Neuro: Dementia Endocrine/Autoimmune: None GI: None QUALITY ASSURANCE MONITOR CHASSIS: None : None HEENT: None Psych: Depression Musculoskeletal: None Derm: None - Past Surgical History Past Surgical History: Yes /QUALITY ASSURANCE MONITOR CHASSIS: Tubal ligation - Present Medications Home Medications: Ambulatory Orders Medication Instructions Recorded Confirmed Sertraline HCl 200 mg PO DAILY 05/28/15 03/14/19 buPROPion HCL [Bupropion Xl] 150 mg PO DAILY MDD +300 mg total 01/20/17 03/14/19 dose 450 mg Aspirin Chewable [[facility] 81 mg PO DAILY 09/21/18 03/14/19 Aspirin] Donepezil HCl 10 mg PO DAILY 09/21/18 03/14/19 Memantine HCl 10 mg PO DAILY 09/21/18 03/14/19 Trazodone HCl 50 - 100 mg PO QPM PRN 09/21/18 03/14/19 hydrOXYzine HCL [Hydroxyzine HCl] 5 mg PO DAILY PRN MDD bid 09/21/18 03/14/19 Hydroxyurea [Hydrea] 500 mg PO DAILY 03/15/19 03/15/19 Hydrocodone/Acetaminophen 1 each PO Q6H PRN #3 tablet 04/13/19 [Hydrocodon-Acetaminophen 5-325] - Allergies Allergies/Adverse Reactions: Allergies Allergy/AdvReac Type Severity Reaction Status Date / Time hydrocodone bitartrate * AdvReac Mild Itching Verified 06/05/21 15:25 [From Vicodin] oxycodone HCl * AdvReac Mild Itching Verified 06/05/21 15:25 [From Percocet] - Social History Does the pt smoke?: No Smoking Status: Never smoker Does the pt drink ETOH?: No Does the pt have substance abuse?: No - Immunizations Immunizations are current?: Yes Immunizations: TDAP >10years/unknown - POLST Patient has POLST: No PD ED PE NORMAL - Vitals Vital signs reviewed: Yes - General General: Other (She is alert and oriented to person but not place or time) - HEENT HEENT: PERRL, EOMI - Neck Neck: Supple, no meningeal sign, No bony TTP - Cardiac Cardiac: RRR, No murmur - Respiratory Respiratory: No respiratory distress, Clear bilaterally - Abdomen Abdomen: Normal bowel sounds, Soft, Non tender - Back Back: No CVA TTP, No spinal TTP - Derm Derm: Normal color, Warm and dry - Extremities Extremities: No edema, No calf tenderness / cord - Neuro Eye Opening: To Voice Motor: Obeys Commands Verbal: Confused GCS Score: 13 Results - Vitals Vitals: Vital Signs - 24 hr 06/06/21 06/07/21 20:41 02:29 Temperature 36.6 C Heart Rate 60 56 L Respiratory 16 17 Rate Blood Pressure 110/64 106/57 L O2 Saturation 94 95 Oxygen O2 Source Room air - EKG (time done) 1528 Rate: Rate (enter#) (73) Rhythm: NSR (w PAC) [place]: Normal Intervals: Normal TN, Prolonged QT (borderline 459msec) QRS: Normal Ischemia: Normal ST segments 1846 06/06/21 Rate: Rate (enter#) (71) Rhythm: NSR [place]: Normal Intervals: Normal TN Ischemia: Q waves (Anterior Q waves), Non specific changes (Flattened T waves inferoanterior) Compare to prior EKG: Unchanged from prior EKG - Labs Labs: Laboratory Tests 06/05/21 06/05/21 06/05/21 02:28 15:21 15:21 WBC 7.5 RBC 5.01 Hgb 13.3 Hct 42.6 MCV 85.0 MCH 26.5 L MCHC 31.2 L RDW 16.3 H Plt Count 556 H MPV 8.7 Neut # (Auto) 6.0 Lymph # (Auto) 0.9 L [place] # (Auto) 0.4 Eos # (Auto) 0.2 Baso # (Auto) 0.0 Absolute Nucleated RBC 0.00 Nucleated RBC % 0.0 Sodium 136 Potassium 3.4 L Chloride 105 Carbon Dioxide 22 Anion Gap 9.0 BUN 13 Creatinine 0.9 Estimated GFR (MDRD) 61 L Glucose 136 H Calcium 8.6 Total Bilirubin 0.4 AST 17 ALT 12 Alkaline Phosphatase 41 L Troponin I High Sens Total Protein 6.2 L Albumin 3.7 Globulin 2.5 Albumin/Globulin Ratio 1.5 Lipase 41 TSH Urine Color Urine Clarity Urine pH Ur Specific [place] Urine Protein Urine Glucose (UA) Urine Ketones Urine Occult Blood Urine Nitrite Urine Bilirubin Urine Urobilinogen Ur Leukocyte Esterase Ur Microscopic Review Urine Culture Comments Salicylates < 6.0 Urine Opiates Screen NEGATIVE Ur Oxycodone Screen NEGATIVE Urine Methadone Screen NEGATIVE Ur Propoxyphene Screen NEGATIVE Acetaminophen < 10 L Ur Barbiturates Screen NEGATIVE Ur Tricyclics Screen NEGATIVE Ur Phencyclidine Scrn NEGATIVE Ur Amphetamine Screen POSITIVE H U Methamphetamines Scrn NEGATIVE U Benzodiazepines Scrn NEGATIVE Urine Cocaine Screen NEGATIVE U Cannabinoids Screen NEGATIVE Ethyl Alcohol < 5.0 SARS-CoV-2 (PCR) 06/05/21 06/05/21 06/06/21 15:21 15:28 02:28 WBC RBC Hgb Hct MCV MCH MCHC RDW Plt Count MPV Neut # (Auto) Lymph # (Auto) [place] # (Auto) Eos # (Auto) Baso # (Auto) Absolute Nucleated RBC Nucleated RBC % Sodium Potassium Chloride Carbon Dioxide Anion Gap BUN Creatinine Estimated GFR (MDRD) Glucose Calcium Total Bilirubin AST ALT Alkaline Phosphatase Troponin I High Sens Total Protein Albumin Globulin Albumin/Globulin Ratio Lipase TSH 1.87 Urine Color YELLOW Urine Clarity CLEAR Urine pH 5.5 Ur Specific [place] >=1.030 H Urine Protein NEGATIVE Urine Glucose (UA) NEGATIVE Urine Ketones TRACE Urine Occult Blood NEGATIVE Urine Nitrite NEGATIVE Urine Bilirubin NEGATIVE Urine Urobilinogen 0.2 (NORMAL) Ur Leukocyte Esterase NEGATIVE Ur Microscopic Review NOT INDICATED Urine Culture Comments NOT INDICATED Salicylates Urine Opiates Screen Ur Oxycodone Screen Urine Methadone Screen Ur Propoxyphene Screen Acetaminophen Ur Barbiturates Screen Ur Tricyclics Screen Ur Phencyclidine Scrn Ur Amphetamine Screen U Methamphetamines Scrn U Benzodiazepines Scrn Urine Cocaine Screen U Cannabinoids Screen Ethyl Alcohol SARS-CoV-2 (PCR) NOT DETECTED 06/06/21 19:03 WBC RBC Hgb Hct MCV MCH MCHC RDW Plt Count MPV Neut # (Auto) Lymph # (Auto) [place] # (Auto) Eos # (Auto) Baso # (Auto) Absolute Nucleated RBC Nucleated RBC % Sodium Potassium Chloride Carbon Dioxide Anion Gap BUN Creatinine Estimated GFR (MDRD) Glucose Calcium Total Bilirubin AST ALT Alkaline Phosphatase Troponin I High Sens 4.8 Total Protein Albumin Globulin Albumin/Globulin Ratio Lipase TSH Urine Color Urine Clarity Urine pH Ur Specific [place] Urine Protein Urine Glucose (UA) Urine Ketones Urine Occult Blood Urine Nitrite Urine Bilirubin Urine Urobilinogen Ur Leukocyte Esterase Ur Microscopic Review Urine Culture Comments Salicylates Urine Opiates Screen Ur Oxycodone Screen Urine Methadone Screen Ur Propoxyphene Screen Acetaminophen Ur Barbiturates Screen Ur Tricyclics Screen Ur Phencyclidine Scrn Ur Amphetamine Screen U Methamphetamines Scrn U Benzodiazepines Scrn Urine Cocaine Screen U Cannabinoids Screen Ethyl Alcohol SARS-CoV-2 (PCR) - Rads (name of study) Single view chest x-ray is unremarkable Radiology: EMP read contemporaneously CT of the head and cervical spine Radiology: EMP read contemporaneously (Degenerative changes of the spine and sebaceous cyst of the upper back, no acute disease) PD MEDICAL DECISION MAKING - ED course ED course: 76-year-old woman presents by ambulance for apparent intentional drug overdose with mild altered mental status and nausea. Looking at her med list thankfully there is really nothing on her med list that is too bad and overdose. Given the potential trauma CT of the head and cervical spine and chest x-ray were done without findings of trauma. Over the next couple of hours her mental status improved back to normal. Some dementia and admits to depression. She is agree able to inpatient treatment for depression and suicidal ideation/attempt. Seen by telemetry psychiatric financial services education consultant who recommends voluntary admission to psychiatric facility. Recommends holding psychiatric medications for now until admitted. Update 06/06/2021 Social work unable to come up with disposition today. We are continuing to look, probably needs [facility]. At approximately 6:40 PM she developed substernal chest pain and did look distressed by it. Repeat EKG was unremarkable. We will order a little dose of morphine, chest x-ray and troponin. She is still an unreliable historian about it though. Update 06/07/2021, 12:59 PM: Patient stable today with visitor at bedside. No voiced complaints at this time. . No bed available at an appropriate facility likely through the weekend. Departure - Departure Clinical Impression: Drug overdose, Suicide attempt, Head injury, Altered mental status, Depression, Dementia Condition: Stable
[2021-06-05 15:27] LABS: BASOPHILS % (AUTO) 0.5 %; EOSINOPHILS # (AUTO) 0.2 10^3/uL (0.0-0.7); EOSINOPHILS % (AUTO) 2.1 %; HCT - HEMATOCRIT 42.6 % (37.0-47.0); HGB - HEMOGLOBIN 13.3 g/dL (12.0-16.0); LYMPHOCYTES # (AUTO) 0.9 10^3/uL (1.5-3.5); LYMPHOCYTES % (AUTO) 12.5 %; MEAN CORPUSCULAR HEMOGLOBIN 26.5 pg (27.0-31.0); MEAN CORPUSCULAR HGB CONC 31.2 g/dL (32.0-36.0); MEAN PLATELET VOLUME 8.7 fL (7.9-10.8); MONOCYTES # (AUTO) 0.4 10^3/uL (0.0-1.0); MONOCYTES % (AUTO) 4.9 %; NEUTROPHILS % (AUTO) 79.6 %; PLT - PLATELET COUNT 556 10^3/uL (130-450); RED BLOOD COUNT 5.01 10^6/uL (4.20-5.40); RED CELL DISTRIBUTION WIDTH 16.3 % (12.0-15.0); WHITE BLOOD COUNT 7.5 x10^3/uL (4.8-10.8)
--- OUTSIDE RECORDS SUMMARY | 2021-06-05 15:29 | EXTERNAL MEDICAL SUMMARY RPT | Continuity of Care Document ---
:1945 Author Organization [facility] Address [address] [place] [address] Phone Care Team Providers Name Role Phone Vilma Antonio Unavailable Unavailable Joseph Colbert Unavailable Unavailable Allergies No information. Encounters No information. Medications date description facility [id number] Hydroxyzine Hydrochloride 10 MG Oral [facility] [id number] 24 HR Bupropion Hydrochloride 300 MG Ex [facility] Tablet [id number] 24 HR Bupropion Hydrochloride 150 MG Ex [facility] Tablet [id number] Trazodone Hydrochloride 50 MG Oral [facility] [id number] Sertraline 100 MG Oral Tablet [facility] 20210422 lamotrigine [address] [facility] [id number] Hydroxyzine Hydrochloride 10 MG Oral [facility] [id number] 24 HR Bupropion Hydrochloride 300 MG Ex [facility]t [id number] 24 HR Bupropion Hydrochloride 150 MG Ex [facility] Tablet 20210422 Trazodone Hydrochloride 50 MG Oral [facility] 20210422 Sertraline 100 MG Oral Tablet [facility] 20210422 lamotrigine [address] [facility] [id number] Hydroxyzine Hydrochloride 10 MG Oral [facility] [id number] 24 HR Bupropion Hydrochloride 150 MG Ex [facility] Tablet [id number] Trazodone Hydrochloride 50 MG Oral [facility] 20210324 Hydroxyzine Hydrochloride 10 MG Oral [facility] [id number] 24 HR Bupropion Hydrochloride 150 MG Ex [facility] Tablet [id number] Trazodone Hydrochloride 50 MG Oral [facility] 20210318 Hydroxyzine Hydrochloride 10 MG Oral [facility] [id number] Hydroxyzine Hydrochloride 10 MG Oral [facility] Problems Procedures date description facility [id number] [facility] [id number] [facility] [id number] [facility] [id number] [facility] [id number] [facility] [id number] [facility] [id number] [facility] [id number] [facility] [id number] [facility] [id number] [facility] [id number] [facility] [id number] [facility] [id number] [facility] [id number] [facility] [id number] [facility] [id number] [facility] [id number] [facility] [id number] [facility] [id number] [facility] [id number] [facility] [id number] [facility] [id number] [facility] [id number] [facility] Results No information. Vital Signs [...]
[2021-06-05 15:42] LABS: ACETAMINOPHEN < 10 ug/mL (10-30); ALBUMIN 3.7 g/dL (3.2-5.5); ALBUMIN/GLOBULIN RATIO 1.5 (1.0-2.2); ALKALINE PHOSPHATASE 41 IU/L (42-121); ALT ALANINE AMINOTRANSFERASE 12 IU/L (10-60); AST ASPARTATE AMINOTRANSFERASE 17 IU/L (10-42); BILIRUBIN,TOTAL 0.4 mg/dL (0.2-1.0); BUN - BLOOD UREA NITROGEN 13 mg/dL (6-20); CALCIUM 8.6 mg/dL (8.5-10.3); CARBON DIOXIDE - CO2 22 mmol/L (21-32); CHLORIDE 105 mmol/L (101-111); CREATININE 0.9 mg/dL (0.4-1.0); ETOH - ETHANOL < 5.0 mg/dL; GFR - MDRD 61 (>89); GLUCOSE 136 mg/dL (70-100); LIPASE 41 U/L (22-51); POTASSIUM 3.4 mmol/L (3.5-5.0); SALICYLATE < 6.0 mg/dL; SODIUM 136 mmol/L (135-145); TOTAL PROTEIN 6.2 g/dL (6.7-8.2)
--- NOTE | 2021-06-05 16:30 | XRAY Report ---
PROCEDURE: Chest 1 View X-Ray INDICATIONS: Possible trauma, altered TECHNIQUE: One view of the chest was acquired. COMPARISON: August 21, 2018 FINDINGS: SUPPORT DEVICES: None. LUNGS/PLEURA: Coarsened interstitial markings. No focal consolidation, pleural effusion or space-occu pying pneumothorax. MEDIASTINUM: The cardiomediastinal silhouette is within normal limits. BONES/SOFT TISSUES: No acute abnormality. IMPRESSION: 1.No acute cardiopulmonary abnormality. Reviewed by: Kerwin De Santiago MD on 06/05/2021 4:29 PM PDT Approved by: Kerwin De Santiago MD on 06/05/2021 4:29 PM PDT Station ID: [id number]
--- NOTE | 2021-06-05 16:46 | CT Report ---
PROCEDURE: CERVICAL SPINE WO INDICATIONS: Possible trauma, altered TECHNIQUE: Noncontrast 3 mm thick sections acquired from the skull base to the T4 level. Sagittal and coronal r eformats were then constructed. For radiation dose reduction, the following was used: automated exp osure control, adjustment of mA and/or kV according to patient size. COMPARISON: 04/13/2019. Correlation is made with the accompanying head CT, 06/05/2021 FINDINGS: Image quality: Excellent. Bones: No fractures or dislocations. Visualized superior ribs are intact. Mild dextroconvex cervicothoracic sclerotic curvature is seen. There is moderate to severe disc space narrowing seen at C3-C4, C4-C5, C5-C6, and C6-C7. Associated e ndplate irregularity and sclerosis. Posteriorly directed endplate osteophytes are seen, which are wor st at C4-C5. These degenerative changes are similar to 2020. Soft tissues: Prevertebral soft tissues are normal in thickness. No paravertebral hematomas. No ap ical pneumothoraces. Incidental note is made of a partially visualized skin lesion involving the rig ht upper back posteriorly, measuring 2.4 cm. This is unchanged compared to 2020. IMPRESSION: No acute fracture can be seen. Relatively prominent cervical spine degenerative changes are again seen. Incidental note is made of: Stable 2.4 cm skin lesion involving the right upper back, likely a sebaceous cyst Reviewed by: Vinod Moraes MD on 06/05/2021 3:45 PM AKNAA Approved by: Vinod Moraes MD on 06/05/2021 3:45 PM AKDT Station ID: [id number]
--- NOTE | 2021-06-05 16:48 | CT Report ---
PROCEDURE: HEAD WO INDICATIONS: Possible trauma, altered TECHNIQUE: Noncontrast 4.5 mm thick angled axial sections acquired from the foramen magnum to the vertex. For r adiation dose reduction, the following was used: automated exposure control, adjustment of mA and/or kV according to patient size. COMPARISON: 03/20/2021, 04/13/2019. Correlation is also made with the accompanying cervical spine CT, 06/05/2021. FINDINGS: Image quality: There is streak artifact seen through the skull base. CSF spaces: Basal cisterns are patent. No extra-axial fluid collections. Ventricles are normal in size and shape. Brain: No midline shift. No intracranial masses or hemorrhage. Stanley-white matter interface is norm al. Skull and face: Calvarium and visualized facial bones are intact, without suspicious lesions. There is a bony excrescence seen along the posterior occiput, which is similar to the prior studies and co nsidered to be benign. Sinuses: Visualized sinuses and mastoids are clear. IMPRESSION: No intracranial hemorrhage is seen. No significant intracranial abnormality is seen. Noncontrast head CT similar to the priors. Reviewed by: Vinod Moraes MD on 06/05/2021 3:47 PM RONNA Approved by: Vinod Moraes MD on 06/05/2021 3:47 PM RONNA Station ID: [id number]
--- NOTE | 2021-06-05 20:23 | TELEPSYCH PHYS NOTE ---
Telepsych Consultation Note Consult: Name: Pamela LionsDOB: 1945 DateandTime: 06/05/2021 10:48:33 PM [facility] [place] Length of consult: 45 min This evaluation was conducted via video telepsychiatry with the assistance of onsite staff Reason for consult: overdose Requested by: Dr. Soto History of Present Illness: The patient is a 76-year-old female history of dementia who presented to the ER after an overdose. The patient states that her regimen does not work and she grew tired of fighting. Patient took several of her medications in attempt to end her life. Patient continues to report suicidal thoughts with no particular stressor. She is agreeable to inpatient psychiatric care. Collateral Contacted: Joseph for not contacting the collateral:Patient meets criteria for admission Sleep issues?: YesSleep Quantity:PoorSleep Quality:Poor Psychiatric History/Treatment History: Past diagnoses: depression Hospitalizations: No Current Treatment:YesMedication management:YesMedications:Therapy:Yes TherapyDesc: Suicide Assessment: PSS-3: 1) Over the past 2 weeks have you felt down, depressed or hopeless?Yes 2) Over the past 2 weeks have you had thoughts of killing yourself?Yes 3) Have you ever in your life attempted to kill yourself?No Within the past 6 months? PSS-3 Secondary Screen: 1) Positive on PSS-3 questions 2 & 3 active SI with a past attempt?No 2) Have you been thinking about how you might kill yourself?Yes 3) Have you had some intention of acting on your thoughts?Yes 4) Lifetime psychiatric hospitalization?No 5) Has drinking or substance abuse ever been a problem for you?Yes 6) Current irritability, agitation, or aggression?Yes PSS-3 Secondary Screen Scoring: Moderate Notes: Mild(0-2) No current attempt and no plan/intent Moderate(3-4) No current attempt, Plan OR intent but not both Severe(5-6) [facility]: Risk Factors Stressors: See HPI Attempts/Self-injury: Unknown-NA Impulsivity:YesDescription: Drug/Alcohol History:YesDescription:cocaine-sober for 33 yrs Trauma History:No Access to firearms:No HI/Violence/Property destruction:No Legal: No Family Psych History:No Family History of suicide:No Protective Factors: Can handle stress well?No Presybeterian?No External: Social supports/ Therapeutic relationships: YesDescription: Relationship history: Living situation: lives alone Employment: No Education: HS grad, no college Responsibility to family/children/work: No Future orientation:No Health History: Medical History: deep vein thrombosis Medications & Freq: Sertraline 20 mg daily, bupropion XL 450 mg daily, aspirin 81 mg daily, donepezil 10 mg daily, Namenda 10 mg daily, trazodone 100 mg QHS PRN insomnia, hydroxyzine 5 mg daily PRN, hydroxy urea 500 mg daily, hydrocodone/acetaminophen 5/25 mg Q6 hours PRN pain Allergies: hydrocodone, oxycodone Mental Status Exam: Appearance and Attire: Psychomotor agitation:Psychomotor retardation Attitude and behavior:Cooperative Speech:Slow, Soft Mood:Depressed Affect:Constricted Thought process:Logical Thought content:Suicidal ideation Perception:no AVH Intel:Low average Abstract:[place] Language:Impaired to Naming, Impaired to Word finding Orientation:Oriented to person, Disoriented to place, Disoriented to time Sense:Distractible Knowledge:Mild impairment Memory:Impaired to Immediate recall, Impaired to Recent recall (3 min), Impaired to Remote recall, Impaired to Executive function, Cannot spell world forwards, Cannot count backwards by 3s Insight:Severe impairment Judgement:Severe impairment, Impaired in interactions with others, Impaired in response and decision making, Impaired in responses to current situation and behavior Gait:No abnormality Impression/Risk Assessment: Current Suicide Risk Elevated?Yes Current Violence Risk Elevated?No Issues with ability to care for self?Yes Summary: The pt is a 76 yo female with depressed mood and a recent overdose. She is not safe for discharge. Inpt care recommended. Admit as voluntary. Diagnosis: F01.50 Vascular dementia without behavioral disturbance, F33.2 Major depressive disorder, recurrent severe without psychotic features CPT Codes: 33882 - Psychiatric Diagnostic Evaluation with Medical Services Treatment Plan: Level of Care: voluntary admission Psychiatric Clearance: No Observation level 1:1 needed?: Yes Pharmacological: hold psych meds. May restart on psych unit Patient psychotic?No Therapy: Supportive Follow up needed while in the hospital?: YesNumber of times:Daily Discussed plan with onsite production team member: Yes Who Dr. Soto Other: Sacha Joshi MD [facility] List names and roles of persons who participated in consult: Sacha Joshi MD. [facility]
[2021-06-06 02:31] LABS: MUDS CUTOFF CONCENTRATIONS CUTOFF CONC BELOW:
[2021-06-06 02:42] LABS: COCAINE SCREEN URINE NEGATIVE (NEGATIVE); THC CANNABINOID SCREEN, URINE NEGATIVE (NEGATIVE)
[2021-06-06 02:43] LABS: AMPHETAMINE SCREEN,URINE POSITIVE (NEGATIVE); BARBITURATE SCREEN,UR NEGATIVE (NEGATIVE); BENZODIAZEPINES SCREEN, URINE NEGATIVE (NEGATIVE); METHADONE SCREEN, URINE NEGATIVE (NEGATIVE); METHAMPHETAMINES SCREEN, URINE NEGATIVE (NEGATIVE); OPIATE SCREEN, URINE NEGATIVE (NEGATIVE); OXYCODONE SCREEN, URINE NEGATIVE (NEGATIVE); PROPOXYPHENE SCREEN, URINE NEGATIVE (NEGATIVE); TRICYCLIC ANTIDEPRESSANT,URINE NEGATIVE (NEGATIVE)
[2021-06-06 03:08] LABS: BILIRUBIN,URINE NEGATIVE (NEGATIVE); CLARITY,URINE CLEAR (CLEAR); GLUCOSE, URINE (UA) NEGATIVE (NEGATIVE); KETONES,URINE (UA) TRACE mg/dL (NEGATIVE); LEUKOCYTE ESTERASE, URINE NEGATIVE (NEGATIVE); NITRITE,URINE NEGATIVE (NEGATIVE); OCCULT BLOOD,URINE NEGATIVE (NEGATIVE); PH,URINE 5.5 PH (5.0-7.5); PROTEIN,URINE NEGATIVE (NEGATIVE); UROBILINOGEN,URINE 0.2 (NORMAL) E.U./dL (NORMAL)
[2021-06-06] MEDS ORDERED: MORPHINE 2 MG/ML CARPUJECT IVP STA (18:48)
--- NOTE | 2021-06-06 19:55 | XRAY Report ---
PROCEDURE: Chest 1 View X-Ray INDICATIONS: chest pain TECHNIQUE: One view of the chest was acquired. COMPARISON: June 05, 2021 FINDINGS: SUPPORT DEVICES: None. LUNGS/PLEURA: Prominent interstitial markings, concerning for pulmonary edema and/or chronic intersti tial change. No consolidation, pleural effusion, or pneumothorax. MEDIASTINUM: Retrocardiac density, compatible with hiatal hernia. The cardiomediastinal silhouette is otherwise within normal limits. BONES/SOFT TISSUES: No acute abnormality. IMPRESSION: 1.Mild pulmonary edema versus chronic change. Reviewed by: Kerwin De Santiago MD on 06/06/2021 7:53 PM PDT Approved by: Kerwin De Santiago MD on 06/06/2021 7:53 PM PDT Station ID: [id number]
[2021-06-07] MEDS ORDERED: QUEtiapine 25 MG TABLET PO STA (02:26)
[2021-06-07] MEDS ORDERED: ACETAMINOPHEN 500 MG TABLET PO STA (11:20)
[2021-06-07] MEDS ORDERED: HYDROcod/ACETAM 5/325 MG TABLET PO STA (11:24)
--- NOTE | 2021-06-07 13:05 | ED Physician Documentation ---
ED Addendum - Addendum Addendum: 06/07/21 13:03The patient was complaining of some chest wall pain in the mid sternum and right breast area. She states she had injured it when she fell a couple of days ago. Comment had been made in nursing notes of some chest wall tenderness overnight and on exam this morning she does have tenderness in the soft tissue in the parasternal and right breast area. No obvious bruising. She had had a chest x-ray, EKG and troponin previously in this visit that were normal. Her daughter was asking about medication for it and also about her other usual medications. Review of the telepsych consult had directed to withhold her psychiatric medications pending placement in a facility. However it probably is appropriate for her to continue her medications for Memantine and donepizil and trazodone for sleep at night and can go with some regular Tylenol 4 times daily. She does have hydrocodone on her med list as a as needed and I will add that in for here. 06/07/21 13:05
[2021-06-07] MEDS: ACETAMINOPHEN 500 MG TABLET PO PRN ×2 (17:16→22:11)
[2021-06-07] MEDS ORDERED: MORPHINE IR 15 MG TABLET PO STA (18:21)
[2021-06-07] MEDS: traZODone 50 MG TABLET PO SCH (22:11)
[2021-06-08] MEDS: MEMANTINE 5 MG TABLET PO SCH (11:08)
[2021-06-08] MEDS: ACETAMINOPHEN 500 MG TABLET PO PRN ×3 (11:08→21:13)
[2021-06-08] MEDS: traZODone 50 MG TABLET PO SCH (21:13)
[2021-06-09] MEDS ORDERED: QUEtiapine 25 MG TABLET PO STA (00:03)
[2021-06-09] MEDS: MEMANTINE 5 MG TABLET PO SCH (08:59)
[2021-06-09] MEDS: ACETAMINOPHEN 500 MG TABLET PO PRN (16:32)
[2021-06-09] MEDS: traZODone 50 MG TABLET PO SCH (21:40)
[2021-06-10] MEDS ORDERED: QUEtiapine 25 MG TABLET PO STA (00:37)
[2021-06-10] MEDS: MEMANTINE 5 MG TABLET PO SCH (10:02)
[2021-06-10] MEDS: ACETAMINOPHEN 500 MG TABLET PO PRN ×2 (11:20→20:40)
--- NOTE | 2021-06-10 18:07 | ED Physician Documentation ---
ED Addendum - Addendum Addendum: 06/10/21 18:05 The patient has been cooperative and interacting here. Poor short-term memory. She denies suicidal ideation and does not remember any overdose from the several days ago. She seems to be doing well and mood. I talked with her psychiatrist from [facility], Dr. Colbert. I reviewed the presentation and course with him. He states this was the first notification he had of her being admitted in the ER. We discussed the current medication which is off of her psychiatric medicines due to the overdose and not wanting to provoke any serotonin syndrome. We have kept her on her dementia medicines. He states at this point he would probably keep her off of her antidepressants and continue with just the denepezill and memantine and trazodone at night with hydroxyzine twice daily as needed for agitation. To hold off on the sertraline and bupropion for now.
[2021-06-10] MEDS: DONEPEZIL 5 MG TABLET PO SCH (20:40)
[2021-06-10] MEDS: traZODone 50 MG TABLET PO SCH (20:40)
[2021-06-11] MEDS: MEMANTINE 5 MG TABLET PO SCH (11:13)
[2021-06-11] MEDS: ACETAMINOPHEN 500 MG TABLET PO PRN ×2 (14:27→22:07)
--- NOTE | 2021-06-11 18:26 | ED Physician Documentation ---
ED Addendum - Addendum Addendum: 06/11/21 18:26 Patient alert cooperative and without stated complaint on this shift. No word about disposition to geriatric psychiatry at this time.
[2021-06-11] MEDS: DONEPEZIL 5 MG TABLET PO SCH (22:07)
[2021-06-11] MEDS: traZODone 50 MG TABLET PO SCH (22:07)
[2021-06-11] MEDS ORDERED: QUEtiapine 25 MG TABLET PO STA (22:37)
[2021-06-12] MEDS: MEMANTINE 5 MG TABLET PO SCH (10:35)
[2021-06-12] MEDS: ACETAMINOPHEN 500 MG TABLET PO PRN (10:35)
[2021-06-12 15:15] VITALS: BP 104/64
--- NOTE | 2021-06-12 16:01 | ED Physician Documentation ---
ED Addendum - Addendum Addendum: 06/12/21 15:58The patient is awake and conversant and cooperative without any specific complaints on this morning. The patient has been doing well behaviorally on current medications which are mainly for her dementia targeted medications with the hydroxyzine if needed but has not really needed it. She is not on her antidepressants now for about a week and doing okay. Discussion with her psychiatrist 2 days ago had suggested keeping her off of them for now and can add back lower doses if need be in the future. Social work has continue to work with in particular [facility] emotional unit and they did have discharges today and have beds available and can accept the patient this evening. The patient will be transferred to psychiatric facility by BLS transfer because of concerns for cognitive dementia for wandering risk and also because of potential depression. Disposition: The patient is transferred from the emergency room to psychiatric facility in stable condition. Diagnoses: 1. Dementia with cognitive deficit and anxiety disorder 2. Depression with suicidal ideation 3. Intentional overdose
== END 2021-06-12 17:53 ==
LOC: EDUNIT# → ED 15:06
DX: T50.912A Poisoning by multiple unspecified drugs, medicaments and biological substances, intentional self-harm, initial encounter (principal); F01.50 Vascular dementia, unspecified severity, without behavioral disturbance, psychotic disturbance, mood disturbance, and anxiety; F33.2 Major depressive disorder, recurrent severe without psychotic features; R07.89 Other chest pain; F03.90 Unspecified dementia, unspecified severity, without behavioral disturbance, psychotic disturbance, mood disturbance, and anxiety; F41.9 Anxiety disorder, unspecified; Z20.822 Contact with and (suspected) exposure to COVID-19
CPT/HCPCS: 36415; 70450; 71045; 72125; 80053; 80306; 80307; 81003; 83690; 84443; 84484; 85025; 87635; 93005; 96374; 99285; A9270; G0425; G0480; Q3014; 80320; 80329; 81001; 87086